=== PATIENT | male | born 1980 | race African-American/Black ===

== ENCOUNTER 2017-07-08 15:58 | Inpatient (IN) | payer SELFPAY ==
[~2017-07-08] VITALS: Ht 182.9 cm; Wt 109.1 kg
[2017-07-08] VITALS (8 sets, daily range): BP systolic 115–207; BP diastolic 66–125; PULSE 84–100; RESP 14–22; TEMP 97.5; O2SAT 97–100
[~2017-07-08 15:58] MED LIST: BENZ100 PO; BLOOD PRESSURE MED; DIABETIC MED; ZITH250T PO
[2017-07-08] MEDS ORDERED: METF500T PO (16:28)
[2017-07-08] MEDS ORDERED: LISI10TA3 PO (16:28)
[2017-07-08] MEDS ORDERED: SODIUM CHLORIDE 0.9% FLUSH 10 ML FLUSH IV FLUSH PRN ×2 (16:45→18:45)
--- NOTE | 2017-07-08 16:52 | PD ---
HPI Chief Complaint: General Weakness Time Seen by Provider: 16:44 Travel History International Travel<30 days: No Contact w/Intl Traveler<30days: No Traveled to known affect area: No History of Present Illness HPI Patient comes emergency Department complaining of feeling weak that began today. Denies any chest pain, shortness of breath, fevers, nausea, vomiting, loss or change in bowel or bladder, back pain, numbness tingling, headaches, being around anyone else is sick, or abdominal pain. Patient states had cough for little while now saw his primary care doctor about a week ago was prescribed cough medicine that helped a little bit. Reports cough is nonproductive. Patient blood work done on the showed elevated creatinine of 7.9. Patient states is not helping with the targeting acquisition officer secondary to not having any insurance. Patient has history of diabetes and hypertension reports taking his medication but denies checking his blood sugars. PFSH Past Medical History Cardiovascular Problems: Yes (HTN) Diabetes: Yes Patient Takes Glucophage: Yes Diminished Hearing: No Hypertension: Yes Influenza Vaccination: No Past Surgical History Surgical History: No Previous Surgery Social History Alcohol Use: No Tobacco Use: Yes (cigars) Substance Use: No Allergies-Medications (Allergen,Severity, Reaction): Coded Allergies: No Known Allergies (Unverified Allergy, Unknown, 07/08/17) Reported Meds & Prescriptions Reported Meds & Active Scripts Active Reported Metformin (Metformin HCl) 500 Mg Tab 500 Mg PO BIDPC Lisinopril 10 Mg Tab 10 Mg PO DAILY [Diabetic Med] [Blood Pressure Med] Review of Systems Except as stated in HPI: all other systems reviewed are Neg Physical Exam Narrative GENERAL: Well-developed, overly nourished, in no acute distress, and non-ill appearing. SKIN: Focused skin assessment warm and dry. HEAD: Atraumatic. Normocephalic. EYES: Pupils equal and round. EOMI. No scleral icterus. No injection or drainage. ENT: No nasal bleeding or discharge. Mucous membranes pink and moist. NECK: Trachea midline. Supple. No nuclear rigidity. CARDIOVASCULAR: Regular rate and rhythm. No murmur appreciated. RESPIRATORY: No accessory muscle use. No respiratory distress. Clear to auscultation. Breath sounds equal bilaterally. No coughing noted on exam. Patient speaking in full sentences without difficulty. GASTROINTESTINAL: Abdomen soft, non-tender, nondistended, and no guarding. Hepatic and splenic margins not palpable. Normal bowel sounds 4. No pulsatile mass. No CVA tenderness. MUSCULOSKELETAL: No obvious deformities. No clubbing. No cyanosis. No edema. Full range of motion. NEUROLOGICAL: Awake and alert. No obvious cranial nerve deficits. Motor grossly within normal limits. Normal speech. PSYCHIATRIC: Appropriate mood and affect; insight and judgment normal. Data Data Last Documented VS Vital Signs Date Time Temp Pulse Resp B/P (MAP) Pulse Ox O2 Delivery O2 Flow Rate FiO2 07/08/17 16:50 97 Room Air 07/08/17 16:45 86 20 07/08/17 16:00 97.5 Orders Orders Complete Blood Count With Diff (07/08/17 16:44) Comprehensive Metabolic Panel (07/08/17 16:44) Lipase (07/08/17 16:44) Urinalysis - C+S If Indicated (07/08/17 16:44) Iv Access Insert/Monitor (07/08/17 16:44) Ecg Monitoring (07/08/17 16:44) Oximetry (07/08/17 16:44) Sodium Chloride 0.9% Flush (Ns Flush) (07/08/17 16:45) Electrocardiogram (07/08/17 16:44) Chest, Single Ap (07/08/17 16:44) Influenzae A/B Antigen (07/08/17 16:44) Beta Hydroxybutyrate (Acetone) (07/08/17 16:44) Blood Gas Venous Ph (07/08/17 16:44) Consult Nephrology (07/08/17 ) (Hub Use Only)Inp Phy Cons/Ref (07/08/17 ) Bladder Scan PRN (07/08/17 18:38) Admit To Inpatient (07/08/17 ) Vital Signs (Adult) Q4H (07/08/17 18:39) Activity Oob With Assistance (07/08/17 18:39) Door Paneler / Telemetry .CONTINUOUS (07/08/17 18:39) Diet Renal (07/08/17 Dinner) Sodium Chloride 0.9% Flush (Ns Flush) (07/08/17 18:45) Sodium Chloride 0.9% Flush (Ns Flush) (07/08/17 21:00) Basic Metabolic Panel (Bmp) (07/09/17 06:00) Complete Blood Count With Diff (07/09/17 06:00) Case Management Consult (07/08/17 18:39) Naloxone Inj (Narcan Inj) (07/08/17 18:45) Inpatient Certification (07/08/17 ) Ed Discharge Order (07/08/17 18:54) Admit Order (Ed Use Only) (07/08/17 ) Vital Signs (Adult) Q4H (07/08/17 18:54) Activity Oob With Assistance (07/08/17 18:54) Notify Dr: Other (07/08/17 18:54) Labs Laboratory Tests Test 07/08/17 16:50 07/08/17 17:28 White Blood Count 8.8 TH/MM3 Red Blood Count 3.57 MIL/MM3 Hemoglobin 10.1 GM/DL Hematocrit 31.8 % Mean Corpuscular Volume 89.2 FL Mean Corpuscular Hemoglobin 28.2 PG Mean Corpuscular Hemoglobin Concent 31.7 % Red Cell Distribution Width 14.6 % Platelet Count 320 TH/MM3 Mean Platelet Volume 8.4 FL Neutrophils (%) (Auto) 58.5 % Lymphocytes (%) (Auto) 22.7 % Monocytes (%) (Auto) 14.2 % Eosinophils (%) (Auto) 3.9 % Basophils (%) (Auto) 0.7 % Neutrophils # (Auto) 5.1 TH/MM3 Lymphocytes # (Auto) 2.0 TH/MM3 Monocytes # (Auto) 1.2 TH/MM3 Eosinophils # (Auto) 0.3 TH/MM3 Basophils # (Auto) 0.1 TH/MM3 CBC Comment DIFF FINAL Differential Comment Blood Urea Nitrogen 74 MG/DL Creatinine 9.61 MG/DL Random Glucose 88 MG/DL Total Protein 6.6 GM/DL Albumin 2.6 GM/DL Calcium Level 8.8 MG/DL Alkaline Phosphatase 105 U/L Aspartate Amino Transf (AST/SGOT) 10 U/L Alanine Aminotransferase (ALT/SGPT) 17 U/L Total Bilirubin 0.2 MG/DL Sodium Level 142 MEQ/L Potassium Level 4.7 MEQ/L Chloride Level 111 MEQ/L Carbon Dioxide Level 20.2 MEQ/L Anion Gap 11 MEQ/L Estimat Glomerular Filtration Rate 7 ML/MIN Lipase 114 U/L B-Hydroxybutyrate 0.12 MMOL/L Venous Blood pH 7.[address] [facility] Medical Decision Making Medical Screen Exam Complete: Yes Emergency Medical Condition: Yes Interpretation(s) Last Impressions Chest X-Ray 07/08/17 1644 Signed Impressions: Service Date/Time: Saturday, July 08, 2017 17:00 - CONCLUSION: Hypoinflation with no acute cardiopulmonary process. Adolfo Stevenson MD Differential Diagnosis DKA, acute renal insufficiency, acute on chronic renal , dehydration, metabolic acidosis, influenza, pneumonia Narrative Course Patient was seen and examined. Initial laboratory and radiological studies were ordered. IV was established and patient was placed on cardiac monitoring. Discussed patient with Dr. Ji, who is in agreement with plan of care and disposition. Discussed patient with targeting acquisition officer recommends having patient admitted for evaluation. Discussed patient with hospitalist who is agreeable with the patient. Discussed all findings and plan care of patient and family. Patient is agreeable for admission. All questions were answered. Stable three- course. Physician Communication Physician Communication [address] Whitmore, targeting acquisition officer concrete rod buster, who recommends having patient admitted and he will consult. [address] Suarez, who is agreeable to admit patient. Diagnosis Primary Impression: Acidosis Additional Impression: Renal insufficiency Admitting Information Admitting Physician Requests: Admit Condition: Stable Delgado Cobos Jul 08, 2017 16:52
[2017-07-08 17:16] LABS: AUTOMATED NEUTROPHIL # 5.1 TH/MM3 (1.8-7.7); BASOPHIL # 0.1 TH/MM3 (0-0.2); BASOPHIL % 0.7 % (0.0-2.0); EOSINOPHIL # 0.3 TH/MM3 (0-0.4); EOSINOPHIL % 3.9 % (0.0-4.0); HEMATOCRIT 31.8 % (39.0-51.0); HEMOGLOBIN 10.1 GM/DL (13.0-17.0); LYMPH % 22.7 % (9.0-44.0); MEAN CELL VOLUME 89.2 FL (80.0-100.0); MEAN CORPUSCULAR HEMOGLOBIN 28.2 PG (27.0-34.0); MEAN CORPUSCULAR HGB CONC 31.7 % (32.0-36.0); MEAN PLATELET VOLUME 8.4 FL (7.0-11.0); MONO % 14.2 % (0.0-8.0); MONOCYTE # 1.2 TH/MM3 (0-0.9); NEUT % 58.5 % (16.0-70.0); PLATELET COUNT 320 TH/MM3 (150-450); RED BLOOD COUNT 3.57 MIL/MM3 (4.50-5.90); RED CELL DISTRIBUTION WIDTH 14.6 % (11.6-17.2); WHITE BLOOD COUNT 8.8 TH/MM3 (4.0-11.0)
[2017-07-08 17:27] LABS: ALBUMIN 2.6 GM/DL (3.4-5.0); AST (GOT) 10 U/L (15-37); BICARBONATE 20.2 MEQ/L (21.0-32.0); BLOOD UREA NITROGEN 74 MG/DL (7-18); CALCIUM 8.8 MG/DL (8.5-10.1); CHLORIDE 111 MEQ/L (98-107); CREATININE 9.61 MG/DL (0.60-1.30); GLOMERULAR FILTRATION RATE 7 ML/MIN (>89); GLUCOSE,RANDOM 88 MG/DL (74-106); LIPASE 114 U/L (73-393); SODIUM (NA) 142 MEQ/L (136-145)
--- NOTE | 2017-07-08 17:27 | RADRPT ---
EXAM DATE/TIME: 07/08/2017 17:00 [facility] COMPARISON: No previous studies available for comparison. INDICATIONS : Cough. MEDICAL HISTORY : None. SURGICAL HISTORY : None. ENCOUNTER: Initial ACUITY: 2 months PAIN SCORE: 0/10 LOCATION: Bilateral chest FINDINGS: A single view of the chest demonstrates the lungs to be symmetrically hypoinflated with no acute infi ltrate. Accounting for low lung lines the heart size is upper limits of normal. Osseous structures ar e intact. CONCLUSION: Hypoinflation with no acute cardiopulmonary process. Adolfo Stevenson MD on July 08, 2017 at 17:24 Board Certified Radiologist. This report was verified electronically.
[2017-07-08 17:28] LABS: ALT (GPT) 17 U/L (12-78)
[2017-07-08 17:30] LABS: ALKALINE PHOSPHATASE 105 U/L (45-117); TOTAL BILIRUBIN ADULT 0.2 MG/DL (0.2-1.0); TOTAL PROTEIN 6.6 GM/DL (6.4-8.2)
--- NOTE | 2017-07-08 17:53 | PD ---
Data Data Last Documented VS Vital Signs Date Time Temp Pulse Resp B/P (MAP) Pulse Ox O2 Delivery O2 Flow Rate FiO2 07/08/17 16:50 97 Room Air 07/08/17 16:00 97.5 90 14 Orders Orders Complete Blood Count With Diff (07/08/17 16:44) Comprehensive Metabolic Panel (07/08/17 16:44) Lipase (07/08/17 16:44) Urinalysis - C+S If Indicated (07/08/17 16:44) Iv Access Insert/Monitor (07/08/17 16:44) Ecg Monitoring (07/08/17 16:44) Oximetry (07/08/17 16:44) Sodium Chloride 0.9% Flush (Ns Flush) (07/08/17 16:45) Electrocardiogram (07/08/17 16:44) Chest, Single Ap (07/08/17 16:44) Influenzae A/B Antigen (07/08/17 16:44) Beta Hydroxybutyrate (Acetone) (07/08/17 16:44) Blood Gas Venous Ph (07/08/17 16:44) Consult Nephrology (07/08/17 ) Labs Laboratory Tests Test 07/08/17 16:50 07/08/17 17:28 White Blood Count 8.8 TH/MM3 Red Blood Count 3.57 MIL/MM3 Hemoglobin 10.1 GM/DL Hematocrit 31.8 % Mean Corpuscular Volume 89.2 FL Mean Corpuscular Hemoglobin 28.2 PG Mean Corpuscular Hemoglobin Concent 31.7 % Red Cell Distribution Width 14.6 % Platelet Count 320 TH/MM3 Mean Platelet Volume 8.4 FL Neutrophils (%) (Auto) 58.5 % Lymphocytes (%) (Auto) 22.7 % Monocytes (%) (Auto) 14.2 % Eosinophils (%) (Auto) 3.9 % Basophils (%) (Auto) 0.7 % Neutrophils # (Auto) 5.1 TH/MM3 Lymphocytes # (Auto) 2.0 TH/MM3 Monocytes # (Auto) 1.2 TH/MM3 Eosinophils # (Auto) 0.3 TH/MM3 Basophils # (Auto) 0.1 TH/MM3 CBC Comment DIFF FINAL Differential Comment Blood Urea Nitrogen 74 MG/DL Creatinine 9.61 MG/DL Random Glucose 88 MG/DL Total Protein 6.6 GM/DL Albumin 2.6 GM/DL Calcium Level 8.8 MG/DL Alkaline Phosphatase 105 U/L Aspartate Amino Transf (AST/SGOT) 10 U/L Alanine Aminotransferase (ALT/SGPT) 17 U/L Total Bilirubin 0.2 MG/DL Sodium Level 142 MEQ/L Potassium Level 4.7 MEQ/L Chloride Level 111 MEQ/L Carbon Dioxide Level 20.2 MEQ/L Anion Gap 11 MEQ/L Estimat Glomerular Filtration Rate 7 ML/MIN Lipase 114 U/L B-Hydroxybutyrate 0.12 MMOL/L Venous Blood pH 7.27 MDM Supervised Visit with MAGNO: Yes Narrative Course I, Dr. Charles, have reviewed the advance practice practitioner's documentation and am in agreement, met with the patient face to face, made the diagnosis, and the medical decision making was done by me. *My assessment and Findings: 36-year-old man, history of hypertension diabetes, now with acutely recognize renal insufficiency. Some acidosis. Worsening weakness today. Discussed with nephrology. We'll plan on admission for evaluation by nephrology. Marino Charles MD Jul 08, 2017 17:53
[2017-07-08] MEDS ORDERED: NALOXONE HCL 0.4 MG/ML AMP IV PUSH PRN (18:45)
[2017-07-08] MEDS ORDERED: hydrALAZINE HCL 20 MG/ML VIAL IV PUSH PRN (21:00)
[2017-07-08] MEDS: SODIUM CHLORIDE 0.9% FLUSH 10 ML FLUSH IV FLUSH SCH (21:00)
--- NOTE | 2017-07-08 21:09 | HHI.HP ---
[facility] Service [facility] Primary Care Physician Curt Choudhary M.D. Admission Diagnosis acidosis, renal insufficiency Diagnoses: Travel History International Travel<30 Days: No Contact w/Intl Traveler <30 Da: No Traveled to Known Affected Are: No History of Present Illness 36-year-old male with past medical history significant for diabetes mellitus and hypertension presents to the emergency department for evaluation of a 1 day history of fatigue. The patient reports that he has been feeling more tired and "just not well" today. The patient had labs drawn by his PCP on 06/29/17 which showed a creatinine of 7. The patient was contacted by his PCP to go to nephrology. The patient was unable to be seen by a electrician helper powerhouse secondary to insurance issues. Patient's creatinine today 9.61. He denies any fever/chills , chest pain, shortness of breath, nausea/vomiting/diarrhea. Denies headache. Vital signs: Temperature 97.5, pulse 90, respirations 14, BP 207/125, pulse ox 100% on room air. Review of Systems Denies fever or chills Denies blurry vision, otorrhea, rhinorrhea Denies sore throat and cough No chest pain, palpitations No shortness of breath or wheezing No abdominal pain Denies constipation/diarrhea/nausea/vomiting Denies muscle pain Denies focal weakness No rashes Past Family Social History Past Medical History Diabetes mellitus Hypertension Past Surgical History None Reported Medications Reported Meds & Active Scripts Active Reported Metformin (Metformin HCl) 500 Mg Tab 500 Mg PO BIDPC Lisinopril 10 Mg Tab 10 Mg PO DAILY [Diabetic Med] [Blood Pressure Med] Allergies: Coded Allergies: No Known Allergies (Unverified Allergy, Unknown, 07/08/17) Family History Both parents with CAD/DM Social History Smokes one cigar daily. Denies alcohol, illicit drugs. Physical Exam Vital Signs Vital Signs Date Time Temp Pulse Resp B/P (MAP) Pulse Ox O2 Delivery O2 Flow Rate FiO2 07/08/17 20:28 84 20 198/91 (126) 98 Room Air 07/08/17 19:14 86 19 203/111 (141) Room Air 07/08/17 16:50 97 Room Air 07/08/17 16:45 86 20 115/66 (82) 100 Room Air 07/08/17 16:00 97.5 90 14 207/125 (152) 100 Physical Exam GENERAL: male sitting up in bed SKIN: No rashes, ecchymoses or lesions. Cool and dry. HEAD: Atraumatic. Normocephalic. No temporal or scalp tenderness. EYES: Pupils equal round and reactive. Extraocular motions intact. No scleral icterus. No injection or drainage. ENT: Nose without bleeding, purulent drainage or septal hematoma. Throat without erythema, tonsillar hypertrophy or exudate. Uvula midline. Airway patent. NECK: Trachea midline. No JVD or lymphadenopathy. Supple, nontender, no meningeal signs. CARDIOVASCULAR: Regular rate and rhythm without murmurs, gallops, or rubs. RESPIRATORY: Clear to auscultation. Breath sounds equal bilaterally. No wheezes , rales, or rhonchi. GASTROINTESTINAL: Abdomen soft, non-tender, nondistended. No hepato-splenomegaly , or palpable masses. No guarding. : No CVA tenderness MUSCULOSKELETAL: Extremities without clubbing, cyanosis, or edema. No joint tenderness, effusion, or edema noted. No calf tenderness. NEUROLOGICAL: Awake and alert. Cranial nerves II through XII intact. Motor and sensory grossly within normal limits. Normal speech. Laboratory Laboratory Tests Test 07/08/17 16:50 07/08/17 17:28 White Blood Count 8.8 Red Blood Count 3.57 Hemoglobin 10.1 Hematocrit 31.8 Mean Corpuscular Volume 89.2 Mean Corpuscular Hemoglobin 28.2 Mean Corpuscular Hemoglobin Concent 31.7 Red Cell Distribution Width 14.6 Platelet Count 320 Mean Platelet Volume 8.4 Neutrophils (%) (Auto) 58.5 Lymphocytes (%) (Auto) 22.7 Monocytes (%) (Auto) 14.2 Eosinophils (%) (Auto) 3.9 Basophils (%) (Auto) 0.7 Neutrophils # (Auto) 5.1 Lymphocytes # (Auto) 2.0 Monocytes # (Auto) 1.2 Eosinophils # (Auto) 0.3 Basophils # (Auto) 0.1 CBC Comment DIFF FINAL Differential Comment Blood Urea Nitrogen 74 Creatinine 9.61 Random Glucose 88 Total Protein 6.6 Albumin 2.6 Calcium Level 8.8 Alkaline Phosphatase 105 Aspartate Amino Transf (AST/SGOT) 10 Alanine Aminotransferase (ALT/SGPT) 17 Total Bilirubin 0.2 Sodium Level 142 Potassium Level 4.7 Chloride Level 111 Carbon Dioxide Level 20.2 Anion Gap 11 Estimat Glomerular Filtration Rate 7 Lipase 114 B-Hydroxybutyrate 0.12 Venous Blood pH 7.27 Date/Time Source Procedure Growth Status 07/08/17 16:50 Nasal Aspirate Influenza Types A,B Antigen (ANAHI) - Final NEGATIVE FOR FLU A AND B ANTIGEN.... Complete Result Diagram: 07/08/17164907/08/171649 Caprini VTE Risk Assessment Caprini VTE Risk Assessment: No/Low Risk (score <= 1) Caprini Risk Assessment Model Point Value = 1 Point Value = 2 Point Value = 3 Point Value = 5 Age 41-60 Minor surgery BMI > 25 kg/m2 Swollen legs Varicose veins or History of unexplained or recurrent spontaneous Oral contraceptives or hormone replacement Sepsis (< 1 month) Serious lung disease, including pneumonia (< 1 month) Abnormal pulmonary function Acute myocardial infarction Congestive heart failure (< 1 month) History of inflammatory bowel disease Medical patient at bed rest Age 61-74 Arthroscopic surgery Major open surgery (> 45 min) Laparoscopic surgery (> 45 min) Malignancy Confined to bed (> 72 hours) Immobilizing plaster cast Central venous access Age >= 75 History of VTE Family history of VTE Factor V Leiden Prothrombin [id number] Lupus anticoagulant Anticardiolipin antibodies Elevated serum homocysteine Heparin-induced thrombocytopenia Other congenital or acquired thrombophilia Stroke (< 1 month) Elective arthroplasty Hip, pelvis, or leg fracture Acute spinal cord injury (< 1 month) Prophylaxis Regimen Total Risk Factor Score Risk Level Prophylaxis Regimen 0-1 Low Early ambulation 2 Moderate Order ONE of the following: *Sequential Compression Device (SCD) *Heparin 5000 units SQ BID 3-4 Higher Order ONE of the following medications: *Heparin 5000 units SQ TID *Enoxaparin/Lovenox 40 mg SQ daily (WT < 150 kg, CrCl > 30 mL/min) *Enoxaparin/Lovenox 30 mg SQ daily (WT < 150 kg, CrCl > 10-29 mL/min) *Enoxaparin/Lovenox 30 mg SQ BID (WT < 150 kg, CrCl > 30 mL/min) AND/OR *Sequential Compression Device (SCD) 5 or more Highest Order ONE of the following medications: *Heparin 5000 units SQ TID (Preferred with Epidurals) *Enoxaparin/Lovenox 40 mg SQ daily (WT < 150 kg, CrCl > 30 mL/min) *Enoxaparin/Lovenox 30 mg SQ daily (WT < 150 kg, CrCl > 10-29 mL/min) *Enoxaparin/Lovenox 30 mg SQ BID (WT < 150 kg, CrCl > 30 mL/min) AND *Sequential Compression Device (SCD) Assessment and Plan Assessment and Plan Assessment/plan: 1. Acute on chronic renal insufficiency Patient's creatinine reportedly 7 on 06/29/17, 9.61 today K 4.7 Renal ultrasound pending Nephrology consulted, appreciate recommendations IV fluid hydration 2. Hypertensive crisis Continue home amlodipine Hydralazine, clonidine when necessary Monitor blood pressure If blood pressure does not respond to above will start Cardene drip 3. Type 2 diabetes mellitus Holding home oral antihyperglycemic SSI Monitor blood glucose 4. Hyperchloremia LR for hydration FEN Renal diet Electrolytes: monitor and replete prn LR at 125 cc/hr Physician Certification 2 Midnight Certification Type: Admission for Inpatient Services Order for Inpatient Services The services are ordered in accordance with Medicare regulations or non- Medicare payer requirements, as applicable. In the case of services not specified as inpatient-only, they are appropriately provided as inpatient services in accordance with the 2-midnight benchmark. Estimated LOS (days): 2 2 days is the estimated time the patient will need to remain in the hospital, assuming treatment plan goals are met and no additional complications. Post-Hospital Plan: Not yet determined Joanna Valero MD Jul 08, 2017 21:09
[2017-07-08] MEDS ORDERED: DEXTROSE 50% IN WATER 50 ML VIAL(D50) IV PUSH PRN (21:15)
[2017-07-08] MEDS ORDERED: GLUCAGON 1 MG/ML VIAL OTHER PRN (21:15)
[2017-07-08 21:30] LABS: AMORPHOUS SEDIMENT, URINE RARE; BILIRUBIN, URINE NEG (NEG); BLOOD, URINE SMALL (NEG); GLUCOSE,URINE 70 mg/dL (NEG); KETONE, URINE NEG (NEG); MUCUS URINE FEW /lpf (OCC); NITRITE,URINE NEG (NEG); SQUAMOUS EPITHELIAL CELL URINE <1 /hpf (0-5); URINE COLOR LIGHT-YELLOW (YELLW/STRAW); URINE LEUKOCYTE ESTERASE NEG (NEG)
[2017-07-08] MEDS: cloNIDine HCL 0.1 MG TAB PO PRN (21:55)
[2017-07-08] MEDS: LACTATED RINGER'S 1000 ML INJ 1,000 ML IV SCH (22:55)
[2017-07-08] MEDS ORDERED: hydrALAZINE HCL 20 MG/ML VIAL IV ONE (23:30)
[2017-07-09] VITALS (13 sets, daily range): BP systolic 160–206; BP diastolic 77–113; PULSE 80–129; RESP 14–24; TEMP 96.1–97.2; O2SAT 97–100
--- NOTE | 2017-07-09 00:34 | EKG ---
Date Performed: 07/08/2017 Time Performed: 16:58:37 PTAGE: 36 years EKG: Sinus rhythm LEFT VENTRICULAR HYPERTROPHY AND ST-T CHANGE ABNORMAL ECG PREVIOUS TRACING : 06/16/2015 19.23 Compared to prior tracing, rate has decreased DOCTOR: Bulmaro Pizarro Interpretating Date/Time 07/09/2017 00:33:25
[2017-07-09] MEDS: cloNIDine HCL 0.1 MG TAB PO PRN (04:04)
[2017-07-09 05:36] LABS: BASOPHIL % 0.5 % (0.0-2.0); EOSINOPHIL # 0.3 TH/MM3 (0-0.4); EOSINOPHIL % 3.8 % (0.0-4.0); HEMATOCRIT 29.9 % (39.0-51.0); HEMOGLOBIN 9.7 GM/DL (13.0-17.0); LYMPH % 20.2 % (9.0-44.0); LYMPHOCYTE # 1.6 TH/MM3 (1.0-4.8); MEAN CELL VOLUME 88.5 FL (80.0-100.0); MEAN CORPUSCULAR HEMOGLOBIN 28.8 PG (27.0-34.0); MEAN CORPUSCULAR HGB CONC 32.6 % (32.0-36.0); MEAN PLATELET VOLUME 8.6 FL (7.0-11.0); MONO % 11.7 % (0.0-8.0); MONOCYTE # 0.9 TH/MM3 (0-0.9); NEUT % 63.8 % (16.0-70.0); PLATELET COUNT 291 TH/MM3 (150-450); RED BLOOD COUNT 3.38 MIL/MM3 (4.50-5.90); RED CELL DISTRIBUTION WIDTH 14.3 % (11.6-17.2); WHITE BLOOD COUNT 7.8 TH/MM3 (4.0-11.0)
[2017-07-09 05:46] LABS: CALCIUM 8.7 MG/DL (8.5-10.1); CREATININE 9.73 MG/DL (0.60-1.30)
[2017-07-09] MEDS: LACTATED RINGER'S 1000 ML INJ 1,000 ML IV SCH ×2 (06:23→13:15)
[2017-07-09] MEDS: INSULIN ASPART SUPPLEMENTAL SCALE SQ SCH ×4 (08:00→20:59)
[2017-07-09] MEDS ORDERED: LISINOPRIL 10 MG TAB PO SCH (09:00)
--- NOTE | 2017-07-09 09:05 | RADRPT ---
EXAM DATE/TIME: 07/09/2017 07:31 [facility] COMPARISON: No previous studies available for comparison. INDICATIONS : Increased BUN/creatinine. MEDICAL HISTORY : Hypertension. Diabetes. Tobacco use. SURGICAL HISTORY : None. ENCOUNTER: Initial ACUITY: 2 days PAIN SCORE: 0/10 LOCATION: Bilateral flank MEASUREMENTS: RIGHT KIDNEY: 10.7 x 5.6 x 5.8 cm LEFT KIDNEY: 10.1 x 4.0 x 4.0 cm FINDINGS: RIGHT KIDNEY: Mild diffusely increased cortical echogenicity. No stone or hydronephrosis. Small anechoic cyst in th e superior pole measuring 1.2 x 1.0 x 1.0 cm. LEFT KIDNEY: Mild diffuse increased cortical echogenicity. No stone or hydronephrosis. No mass. BLADDER: Within normal limits given the degree of distension. CONCLUSION: 1. Mild diffusely increased cortical echogenicity consistent with medical renal disease. 2. No obstructive uropathy. 3. Trace right perinephric fluid. This is a nonspecific finding. 4. Small simple cyst in the superior pole of the right kidney. Ramy Guillaume MD on July 09, 2017 at 9:00 Board Certified Radiologist. This report was verified electronically.
[2017-07-09] MEDS: SODIUM CHLORIDE 0.9% FLUSH 10 ML FLUSH IV FLUSH SCH ×2 (09:21→21:00)
--- NOTE | 2017-07-09 15:23 | HHI.PR ---
Subjective Remarks denies cp/sob afebrile BP very elevated in the 170's Objective Vitals Vital Signs Date Time Temp Pulse Resp B/P (MAP) Pulse Ox O2 Delivery O2 Flow Rate FiO2 07/09/17 13:00 97.2 80 19 181/105 (130) 100 07/09/17 11:27 85 16 165/94 (117) 98 07/09/17 08:44 88 14 177/100 (125) 98 07/09/17 06:00 82 16 173/77 (109) 07/09/17 05:00 86 14 180/78 (112) 98 Room Air 07/09/17 04:00 86 19 206/113 (144) 98 Room Air 07/09/17 02:00 98 20 168/97 (120) 99 07/09/17 01:15 100 20 175/91 (119) 99 07/09/17 00:04 102 22 175/84 (114) 98 07/08/17 22:30 94 22 184/91 (122) 99 07/08/17 21:30 92 22 177/91 (119) 07/08/17 20:28 84 20 198/91 (126) 98 Room Air 07/08/17 19:14 86 19 203/111 (141) Room Air 07/08/17 16:50 97 Room Air 07/08/17 16:45 86 20 115/66 (82) 100 Room Air 07/08/17 16:00 97.5 90 14 207/125 (152) 100 I/O 07/08/17 07/08/17 07/08/17 07/09/17 07/09/17 07/09/17 06:59 14:59 22:59 06:59 14:59 22:59 Intake Total 1000 ml Output Total 1300 ml Balance 1000 ml -1300 ml Intake IV Total 1000 ml Output Urine Total 1300 ml # Voids 2 Result Diagram: 07/09/17 0411 07/09/17 0411 Imaging Last Impressions Renal Ultrasound 07/09/17 0000 Signed Impressions: Service Date/Time: June 07:31 - CONCLUSION: 1. Mild diffusely increased cortical echogenicity consistent with medical renal disease. 2. No obstructive uropathy. 3. Trace right perinephric fluid. This is a nonspecific finding. 4. Small simple cyst in the superior pole of the right kidney. Ramy Guillaume MD Chest X-Ray 07/08/17 1644 Signed Impressions: Service Date/Time: Saturday, July 08, 2017 17:00 - CONCLUSION: Hypoinflation with no acute cardiopulmonary process. Adolfo Stevenson MD Objective Remarks AAOX3 Facial edema with swollen eyelids Clear lungs BL S1S2 RRR, no MRG Abdomen soft, nt, nd no edema in lower extremities Medications and IVs Current Medications Medications (Trade) Dose Ordered Sig/Christine Route Start Time Stop Time Status Last Admin (NS Flush) 2 ml UNSCH PRN IV FLUSH 07/08/17 18:45 (NS Flush) 2 ml BID IV FLUSH 07/08/17 21:00 07/09/17 09:21 (Narcan Inj) 0.4 mg UNSCH PRN IV PUSH 07/08/17 18:45 (Apresoline Inj) 10 mg Q4H PRN IV PUSH 07/08/17 21:00 07/08/17 21:55 (Catapres) 0.1 mg Q6H PRN PO 07/08/17 21:00 07/09/17 04:04 (D50w (Vial) Inj) 50 ml UNSCH PRN IV PUSH 07/08/17 21:15 (Glucagon Inj) 1 mg UNSCH PRN OTHER 07/08/17 21:15 (NovoLOG SUPPLEMENTAL SCALE) 1 ACHS SLIDING SCALE SQ 07/09/17 08:00 Sodium Bicarbonate 100 meq/Sodium Chloride 1,100 ml @ 42 mls/hr Q24H IV 07/09/17 15:15 UNV (Cardura) 2 mg DAILY PO 07/10/17 09:00 UNV (Cardura) 2 mg ONCE ONCE PO 07/09/17 15:15 07/09/17 15:16 UNV A/P Problem List: (1) Uncontrolled hypertension ICD Code: I10 - Essential (primary) hypertension (2) FERNANDEZ (acute kidney injury) ICD Code: N17.9 - Acute kidney failure, unspecified (3) CKD (chronic kidney disease) ICD Code: N18.9 - Chronic kidney disease, unspecified (4) Metabolic acidosis ICD Code: E87.2 - Acidosis Assessment and Plan 1. Acute on chronic renal insufficiency Patient's creatinine reportedly 7 on 06/29/17, 9.61 on admission K 4.7 Nephrology consulted - Recommendations pending. 07/09 Change IV fluids do NS + sodium bicarbonate due to acidosis. Renal ultrasound consistent with medical renal disease. No obstructive uropathy reported. Small simple cyst in the superior pole of the right kidney. 2. Hypertensive crisis Continue home amlodipine Hydralazine, clonidine when necessary Monitor blood pressure 07/09 BP still elevated. Will DC Lisinopril and start patient on oral hydralazine and Cardura. Continue to monitor vital signs. 3. Type 2 diabetes mellitus Holding home oral antihyperglycemic SSI Monitor blood glucose 07/09 Blood sugars stable. Check hemoglobin A1c. 4. Hyperchloremia The CXR and start the patient on an as place sodium bicarbonate. Monitor BMP. FEN Renal diet Electrolytes: monitor and replete prn Discharge Planning Nephrology consult pending. BP elevated. Ayush Ryan MD Jul 09, 2017 15:23
[2017-07-09] MEDS ORDERED: DOXAZOSIN MESYLATE 2 MG TAB PO ONE (15:30)
[2017-07-09] MEDS: hydrALAZINE HCL 10 MG TAB PO SCH ×2 (15:58→22:31)
[2017-07-09] MEDS: SODIUM BICARBONATE 8.4% INJ 75 MEQ in SODIUM CHLOR 0.45% 1000 ML INJ 1,000 ML IV SCH (15:58)
[2017-07-09] MEDS ORDERED: SODIUM BICARBONATE 8.4% INJ 100 MEQ in SODIUM CHLOR 0.9% 1000 ML INJ 1,000 ML IV SCH (16:00)
[2017-07-09] MEDS ORDERED: SODIUM CHLORIDE 0.9% FLUSH 10 ML FLUSH IV FLUSH PRN (16:30)
[2017-07-09] MEDS ORDERED: diphenhydrAMINE HCL 25 MG CAP PO PRN (16:30)
[2017-07-09] MEDS ORDERED: SODIUM CHLOR 0.9% 1000 ML INJ 1,000 ML IV PRN (16:30)
[2017-07-09] MEDS ORDERED: ACETAMINOPHEN 325 MG TAB PO PRN (16:30)
[2017-07-09] MEDS ORDERED: GENTAMICIN SULFATE 20 MG/2 ML VIAL OTHER PRN (16:30)
[2017-07-09] MEDS ORDERED: GELATIN 12 MM/7 MM FOAM TOP PRN (16:30)
[2017-07-09] MEDS ORDERED: SODIUM CHLOR 0.9% 1000 ML INJ 1,000 ML OTHER PRN ×2 (16:30)
[2017-07-09] MEDS ORDERED: MANNITOL 12.5 GM/50 ML VIAL IV PRN (16:30)
[2017-07-09] MEDS ORDERED: cloNIDine HCL 0.1 MG TAB PO PRN (16:30)
[2017-07-09] MEDS ORDERED: NITROGLYCERIN 0.4 MG SL 25 TABS/BTL SL PRN (16:30)
[2017-07-09] MEDS ORDERED: HEPARIN SODIUM - IV 10,000 UNITS/10 ML VIAL IV FLUSH PRN (16:30)
[2017-07-09] MEDS ORDERED: ONDANSETRON HCL 4 MG/2 ML VIAL IV PUSH PRN (16:30)
[2017-07-09] MEDS ORDERED: ALBUMIN 25% INJ 100 ML IV PRN (16:30)
--- NOTE | 2017-07-09 18:08 | PD.CONS ---
[facility] Service Nephrology Reason for Consult ARF Primary Care Physician Curt Choudhary M.D. History of Present Illness The patient is a 36 yo AA male who presented to this facility 07/08 with complaints of fatigue & malaise. He saw his PCP last week for routine care and was advised that his renal functions were severely impaired with SCr at 7.95 and eGFR of 9. He unfortunately has been noncompliant with his medical care on the past and last labs prior to this were in 2014 showing a SCr of 2.05 and eGFR 46. He is a longstanding uncontrolled hypertensive and diabetic. He has been prescribed Lisinopril & Metformin in the past, but does not always take it. He currently is unemployed and has no health insurance which he states is why he has not been following up regularly with his primary. Admitting SCr at 9.61 with eGFR of 7. Worsened at time of consult to 9.73. Denies any NSAID use at home. No recent illness. No antibiotics. No urinary issues. Denies NVD. Besides progressive fatigue that his mother and sister who are present endorse, he denies any other symptoms. (Chastity Morgan) Review of Systems Constitutional: COMPLAINS OF: Fatigue, Change in appetite (Chastity Morgan ) Past Family Social History Allergies: Coded Allergies: No Known Allergies (Unverified Allergy, Unknown, 07/08/17) Past Medical History Noncompliance HTN DM Past Surgical History Denies Reported Medications Metformin (Metformin HCl) 500 Mg Tab 500 Mg PO BID PC Lisinopril 10 Mg Tab 10 Mg PO DAILY Active Ordered Medications Current Medications Medications (Trade) Dose Ordered Sig/Christine Route Start Time Stop Time Status Last Admin (NS Flush) 2 ml UNSCH PRN IV FLUSH 07/08/17 18:45 (NS Flush) 2 ml BID IV FLUSH 07/08/17 21:00 07/09/17 09:21 (Narcan Inj) 0.4 mg UNSCH PRN IV PUSH 07/08/17 18:45 (Apresoline Inj) 10 mg Q4H PRN IV PUSH 07/08/17 21:00 07/08/17 21:55 (Catapres) 0.1 mg Q6H PRN PO 07/08/17 21:00 07/09/17 04:04 (D50w (Vial) Inj) 50 ml UNSCH PRN IV PUSH 07/08/17 21:15 (Glucagon Inj) 1 mg UNSCH PRN OTHER 07/08/17 21:15 (NovoLOG SUPPLEMENTAL SCALE) 1 ACHS SLIDING SCALE SQ 07/09/17 08:00 07/09/17 17:05 (Cardura) 2 mg DAILY PO 07/10/17 09:00 (Apresoline) 10 mg Q8HR PO 07/09/17 15:30 07/09/17 15:58 Sodium Bicarbonate 75 meq/Sodium Chloride 1,075 ml @ 42 mls/hr Q24H IV 07/09/17 16:00 07/09/17 15:58 Sodium Chloride 1,000 ml @ 0 mls/hr Q0M PRN OTHER 07/09/17 16:30 (Heparin Inj) 8,000 units UNSCH PRN IV FLUSH 07/09/17 16:30 Sodium Chloride 1,000 ml @ 200 mls/hr Q5H PRN IV 07/09/17 16:30 Sodium Chloride 1,000 ml @ 0 mls/hr Q0M PRN OTHER 07/09/17 16:30 (Mannitol Inj) 12.5 gm UNSCH PRN IV 07/09/17 16:30 Albumin Human 100 ml @ 60 mls/hr UNSCH PRN IV 07/09/17 16:30 (NS Flush) 5 ml UNSCH PRN IV FLUSH 07/09/17 16:30 (Heparin Inj) UNSCH PRN .XX 07/09/17 16:30 (Gentamicin (Dialysis) Inj) 20 mg UNSCH PRN OTHER 07/09/17 16:30 (Zofran Inj) 4 mg UNSCH PRN IV PUSH 07/09/17 16:30 (Tylenol) 650 mg UNSCH PRN PO 07/09/17 16:30 (Benadryl) 25 mg UNSCH PRN PO 07/09/17 16:30 (Nitrostat Sl) 0.4 mg UNSCH PRN SL 07/09/17 16:30 (Catapres) 0.1 mg UNSCH PRN PO 07/09/17 16:30 (Gelfoam 12 Mm/7 Mm Top) 1 foam UNSCH PRN TOP 07/09/17 16:30 Family History Father with kidney disease related to hypertension Social History Smokes cigars Denies EtOH Denies illicits (Chastity Morgan) Physical Exam Vital Signs Vital Signs Date Time Temp Pulse Resp B/P (MAP) Pulse Ox O2 Delivery O2 Flow Rate FiO2 07/09/17 16:00 97.1 91 17 179/93 (121) 100 07/09/17 13:00 97.2 80 19 181/105 (130) 100 07/09/17 11:27 85 16 165/94 (117) 98 07/09/17 08:44 88 14 177/100 (125) 98 07/09/17 06:00 82 16 173/77 (109) 07/09/17 05:00 86 14 180/78 (112) 98 Room Air 07/09/17 04:00 86 19 206/113 (144) 98 Room Air 07/09/17 02:00 98 20 168/97 (120) 99 07/09/17 01:15 100 20 175/91 (119) 99 07/09/17 00:04 102 22 175/84 (114) 98 07/08/17 22:30 94 22 184/91 (122) 99 07/08/17 21:30 92 22 177/91 (119) 07/08/17 20:28 84 20 198/91 (126) 98 Room Air 07/08/17 19:14 86 19 203/111 (141) Room Air Physical Exam GENERAL: Awake, laying in bed, withdrawn SKIN: Warm and dry. HEAD: Atraumatic. Normocephalic. EYES: Pupils equal and round. No scleral icterus. No injection or drainage. ENT: No nasal bleeding or discharge. Mucous membranes pink and moist. NECK: Trachea midline. No JVD. CARDIOVASCULAR: Regular rate and rhythm. RESPIRATORY: No accessory muscle use. Clear to auscultation. Breath sounds equal bilaterally. GASTROINTESTINAL: Abdomen soft, non-tender, nondistended. Hepatic and splenic margins not palpable. MUSCULOSKELETAL: Extremities without clubbing, cyanosis, or edema. No obvious deformities. NEUROLOGICAL: Awake and alert. Normal speech. PSYCHIATRIC: Appropriate mood and affect; insight and judgment normal. Laboratory Laboratory Tests Test 07/08/17 20:00 07/09/17 04:11 Urine Color LIGHT-YELLOW Urine Turbidity CLEAR Urine pH 6.0 Urine Specific Tyner 1.010 Urine Protein 300 Urine Glucose (UA) 70 Urine Ketones NEG Urine Occult Blood SMALL Urine Nitrite NEG Urine Bilirubin NEG Urine Urobilinogen LESS THAN 2.0 Urine Leukocyte Esterase NEG Urine RBC 2 Urine WBC 5 Urine Squamous Epithelial Cells <1 Urine Amorphous Sediment RARE Urine Mucus FEW Microscopic Urinalysis Comment CULT NOT INDICATED White Blood Count 7.8 Red Blood Count 3.38 Hemoglobin 9.7 Hematocrit 29.9 Mean Corpuscular Volume 88.5 Mean Corpuscular Hemoglobin 28.8 Mean Corpuscular Hemoglobin Concent 32.6 Red Cell Distribution Width 14.3 Platelet Count 291 Mean Platelet Volume 8.6 Neutrophils (%) (Auto) 63.8 Lymphocytes (%) (Auto) 20.2 Monocytes (%) (Auto) 11.7 Eosinophils (%) (Auto) 3.8 Basophils (%) (Auto) 0.5 Neutrophils # (Auto) 5.0 Lymphocytes # (Auto) 1.6 Monocytes # (Auto) 0.9 Eosinophils # (Auto) 0.3 Basophils # (Auto) 0.0 CBC Comment DIFF FINAL Differential Comment Blood Urea Nitrogen 75 Creatinine 9.73 Random Glucose 110 Calcium Level 8.7 Sodium Level 144 Potassium Level 4.5 Chloride Level 114 Carbon Dioxide Level 19.0 Anion Gap 11 Estimat Glomerular Filtration Rate 7 Date/Time Source Procedure Growth Status 07/08/17 16:50 Nasal Aspirate Influenza Types A,B Antigen (ANAHI) - Final NEGATIVE FOR FLU A AND B ANTIGEN.... Complete (Chastity Morgan) Result Diagram: 07/09/17 0411 07/09/17 0411 Imaging Last Impressions Renal Ultrasound 07/09/17 0000 Signed Impressions: Service Date/Time: June 07:31 - CONCLUSION: 1. Mild diffusely increased cortical echogenicity consistent with medical renal disease. 2. No obstructive uropathy. 3. Trace right perinephric fluid. This is a nonspecific finding. 4. Small simple cyst in the superior pole of the right kidney. Ramy Guillaume MD Chest X-Ray 07/08/17 1644 Signed Impressions: Service Date/Time: Saturday, July 08, 2017 17:00 - CONCLUSION: Hypoinflation with no acute cardiopulmonary process. Adolfo Stevenson MD (Chastity Morgan) Assessment and Plan Problem List: (1) Renal failure ICD Codes: N19 - Unspecified kidney failure Plan: Unfortunately, it appears the patient likely has chronic, progressive renal failure related to longstanding uncontrolled hypertension and diabetes with associated heavy proteinuria. It is suspected that he has reached ESRD at this point. We will plan on initiating dialysis tomorrow after PermCath placed (consulted IR & notified intelligence manager). We will do work up in interim to see if there is any reversible cause for renal failure, but nothing identified at the present. To continue on IVF overnight with bicarb added given acidosis. This will correct with HD tomorrow. The patient and his family have been advised of the potential complications that can occur with catheter placement as well as dialysis. He is in verbal agreement to proceed. NPO after midnight 1st HD 07/10 with 2nd session likely 07/11 with MWF schedule thereafter if deemed chronic. Case management will be asked to see the patient regarding outpatient payor source. If he does not qualify for Medicaid, then he will likely be eligible for Medicare if deemed ESRD. Unfortunately, this process can be prolonged and sometimes take upwards of 90 days at the start of dialysis which the patient and his family have been counseled. Avoid nephrotoxic medications including NSAIDs and iodinated contrast dyes. Avoid gadolinium. (2) Uncontrolled diabetes mellitus ICD Codes: E11.65 - Type 2 diabetes mellitus with hyperglycemia Plan: Management as per primary (3) Uncontrolled hypertension ICD Codes: I10 - Essential (primary) hypertension Plan: Lisinopril has been held Currently on Doxazosin, Hydralazine, and Clonidine. Regimen was adjusted this AM by primary. Will re-eval BP tomorrow and adjust if needed tomorrow. (Chastity Morgan) Assessment and Plan The exam, history, and the medical decision-making described in the above note were completed with the assistance of the PA-C. I reviewed and agree with the findings presented. I attest that I had a [id number] encounter with the patient on the same day, and personally performed and documented my assessment and findings in the medical record. (Andrea Whitmore MD) Chastity Morgan Jul 09, 2017 18:08 Andrea Whitmore MD Jul 10, 2017 16:57
[2017-07-09 22:16] LABS: COMPLEMENT C3 118 MG/DL (90-180); COMPLEMENT C4 35 MG/DL (10-40)
[2017-07-09 22:23] LABS: IRON (FE) 45 MCG/DL (65-175); PHOSPHORUS 7.4 MG/DL (2.5-4.9)
[2017-07-09 22:55] LABS: % SATURATION IRON PROFILE 20.2 % (20-50); FERRITIN 105 NG/ML (26-388); IMMUNOGLOBULIN A 136 MG/DL (80-441); IMMUNOGLOBULIN G 556 MG/DL (650-1600); IMMUNOGLOBULIN M 18 MG/DL (43-265); KAPPA LAMBDA RATIO 1.91 (1.57-3.93); KAPPA LIGHT CHAIN 141 MG/DL (170-370); LAMBDA LIGHT CHAIN 74 MG/DL (90-210); TOTAL IRON BINDING CAPACITY 223 MCG/DL (250-450)
[2017-07-10] VITALS (8 sets, daily range): BP systolic 132–158; BP diastolic 77–93; PULSE 84–103; RESP 16–22; TEMP 96.6–97.2; O2SAT 96–99
[2017-07-10 00:18] LABS: PROTHROMBIN TIME - PATIENT 10.6 SEC (9.8-11.6)
[2017-07-10] MEDS: hydrALAZINE HCL 10 MG TAB PO SCH ×3 (06:15→21:21)
[2017-07-10 07:29] LABS: HEMATOCRIT 25.6 % (39.0-51.0); HEMOGLOBIN 8.7 GM/DL (13.0-17.0); MEAN CELL VOLUME 87.4 FL (80.0-100.0); MEAN CORPUSCULAR HEMOGLOBIN 29.6 PG (27.0-34.0); MEAN CORPUSCULAR HGB CONC 33.9 % (32.0-36.0); MEAN PLATELET VOLUME 8.7 FL (7.0-11.0); PLATELET COUNT 255 TH/MM3 (150-450); RED BLOOD COUNT 2.93 MIL/MM3 (4.50-5.90); RED CELL DISTRIBUTION WIDTH 14.2 % (11.6-17.2); WHITE BLOOD COUNT 7.7 TH/MM3 (4.0-11.0)
[2017-07-10 07:38] LABS: ALBUMIN 2.2 GM/DL (3.4-5.0); BICARBONATE 20.4 MEQ/L (21.0-32.0); CALCIUM 8.4 MG/DL (8.5-10.1); CREATININE 9.42 MG/DL (0.60-1.30)
[2017-07-10] MEDS: INSULIN ASPART SUPPLEMENTAL SCALE SQ SCH ×4 (08:00→21:21)
[2017-07-10] MEDS: SODIUM CHLORIDE 0.9% FLUSH 10 ML FLUSH IV FLUSH SCH ×2 (08:36→21:00)
[2017-07-10] MEDS: DOXAZOSIN MESYLATE 2 MG TAB PO SCH (08:36)
[2017-07-10] MEDS: CALCIUM ACETATE 667 MG CAP PO SCH ×3 (09:49→18:17)
--- NOTE | 2017-07-10 10:19 | PD.PN.STU ---
Subjective Remarks Patient is a 36 y/o male w/ past medical history of DM and HTN previously uncontrolled who is on hospital day 2 admitted for renal insufficency. He presented to the ED with 1 day of fatigue. Labs drawn by PCP on 06/29/17 reported to reveal Cr of 7. Creatine level drawn on 07/08/17 showed 9.61. Today patient has no complaints. Denies any fevers chills CP, sob, N/V/D. Denies any bone or muscle pain or recent fractures. DEnies any bowel or bladder issues. Denies blood in stool or urine. Per nurse patient is heading to IR for a perm cath. Objective Vitals Vital Signs Date Time Temp Pulse Resp B/P (MAP) Pulse Ox O2 Delivery O2 Flow Rate FiO2 07/10/17 08:00 96.8 88 16 151/82 (105) 97 07/10/17 04:37 92 07/10/17 04:00 96.6 91 22 132/79 (96) 96 07/10/17 00:00 97.1 92 22 155/77 (103) 96 07/09/17 23:52 129 07/09/17 20:06 100 07/09/17 20:00 96.1 91 24 160/85 (110) 97 07/09/17 16:00 97.1 91 17 179/93 (121) 100 07/09/17 13:00 97.2 80 19 181/105 (130) 100 07/09/17 11:27 85 16 165/94 (117) 98 I/O 07/09/17 07/09/17 07/09/17 07/10/17 07/10/17 07/10/17 07:00 15:00 23:00 07:00 15:00 23:00 Intake Total 1000 ml 1480 ml 360 ml Output Total 1300 ml 1650 ml Balance 1000 ml -1300 ml 1480 ml -1290 ml Intake Oral 480 ml 360 ml IV Total 1000 ml 1000 ml Output Urine Total 1300 ml 1650 ml # Voids 2 2 # Bowel Movements 0 0 Result Diagram: 07/10/17 0510 07/10/17 0510 Other Results Allergies Coded Allergies Type Severity Reaction Last Updated Verified No Known Allergies Allergy Unknown 07/08/17 No Recent Impressions Renal Ultrasound 07/09/17 0000 Signed Impressions: Service Date/Time: June 07:31 - CONCLUSION: 1. Mild diffusely increased cortical echogenicity consistent with medical renal disease. 2. No obstructive uropathy. 3. Trace right perinephric fluid. This is a nonspecific finding. 4. Small simple cyst in the superior pole of the right kidney. Ramy Guillaume MD Chest X-Ray 07/08/17 1644 Signed Impressions: Service Date/Time: Saturday, July 08, 2017 17:00 - CONCLUSION: Hypoinflation with no acute cardiopulmonary process. Adolfo Stevenson MD 07/08/17 07/08/17 07/09/17 07/09/17 07/10/17 07/10/17 06:00 18:00 06:00 18:00 06:00 18:00 Intake Total 2480 ml 360 ml Output Total 1300 ml 1650 ml Balance 1180 ml -1290 ml Intake Oral 480 ml 360 ml IV Total 2000 ml Output Urine Total 1300 ml 1650 ml # Voids 4 # Bowel Movements 0 0 Laboratory Tests Test 07/08/17 16:50 07/08/17 17:28 07/08/17 20:00 07/09/17 04:11 White Blood Count 8.8 TH/MM3 7.8 TH/MM3 Red Blood Count 3.57 MIL/MM3 3.38 MIL/MM3 Hemoglobin 10.1 GM/DL 9.7 GM/DL Hematocrit 31.8 % 29.9 % Mean Corpuscular Volume 89.2 FL 88.5 FL Mean Corpuscular Hemoglobin 28.2 PG 28.8 PG Mean Corpuscular Hemoglobin Concent 31.7 % 32.6 % Red Cell Distribution Width 14.6 % 14.3 % Platelet Count 320 TH/MM3 291 TH/MM3 Mean Platelet Volume 8.4 FL 8.6 FL Neutrophils (%) (Auto) 58.5 % 63.8 % Lymphocytes (%) (Auto) 22.7 % 20.2 % Monocytes (%) (Auto) 14.2 % 11.7 % Eosinophils (%) (Auto) 3.9 % 3.8 % Basophils (%) (Auto) 0.7 % 0.5 % Neutrophils # (Auto) 5.1 TH/MM3 5.0 TH/MM3 Lymphocytes # (Auto) 2.0 TH/MM3 1.6 TH/MM3 Monocytes # (Auto) 1.2 TH/MM3 0.9 TH/MM3 Eosinophils # (Auto) 0.3 TH/MM3 0.3 TH/MM3 Basophils # (Auto) 0.1 TH/MM3 0.0 TH/MM3 CBC Comment DIFF FINAL DIFF FINAL Differential Comment Blood Urea Nitrogen 74 MG/DL 75 MG/DL Creatinine 9.61 MG/DL 9.73 MG/DL Random Glucose 88 MG/DL 110 MG/DL Total Protein 6.6 GM/DL Albumin 2.6 GM/DL Calcium Level 8.8 MG/DL 8.7 MG/DL Alkaline Phosphatase 105 U/L Aspartate Amino Transf (AST/SGOT) 10 U/L Alanine Aminotransferase (ALT/SGPT) 17 U/L Total Bilirubin 0.2 MG/DL Sodium Level 142 MEQ/L 144 MEQ/L Potassium Level 4.7 MEQ/L 4.5 MEQ/L Chloride Level 111 MEQ/L 114 MEQ/L Carbon Dioxide Level 20.2 MEQ/L 19.0 MEQ/L Anion Gap 11 MEQ/L 11 MEQ/L Estimat Glomerular Filtration Rate 7 ML/MIN 7 ML/MIN Lipase 114 U/L B-Hydroxybutyrate 0.12 MMOL/L Venous Blood pH 7.27 Urine Color LIGHT-YELLOW Urine Turbidity CLEAR Urine pH 6.0 Urine Specific [place] 1.010 Urine Protein 300 mg/dL Urine Glucose (UA) 70 mg/dL Urine Ketones NEG mg/dL Urine Occult Blood SMALL Urine Nitrite NEG Urine Bilirubin NEG Urine Urobilinogen LESS THAN 2.0 MG/DL Urine Leukocyte Esterase NEG Urine RBC 2 /hpf Urine WBC 5 /hpf Urine Squamous Epithelial Cells <1 /hpf Urine Amorphous Sediment RARE Urine Mucus FEW /lpf Microscopic Urinalysis Comment CULT NOT INDICATED Test 07/09/17 21:07 07/09/17 23:46 07/10/17 05:10 Phosphorus Level 7.4 MG/DL 7.0 MG/DL Iron Level 45 MCG/DL Total Iron Binding Capacity 223 MCG/DL Percent Iron Saturation 20.2 % Ferritin 105 NG/ML 25-Hydroxy Vitamin D Total LESS THAN 4.2 ng/ML Parathyroid Hormone (Intact) 494.0 PG/ML Immunoglobulin G Total 556 MG/DL Immunoglobulin A 136 MG/DL Immunoglobulin M 18 MG/DL Immunoglobulin [place]/Lambda Ratio 1.91 Complement C3 118 MG/DL Complement C4 35 MG/DL [place] Light Chain Analysis 141 MG/DL Lambda Light Chain Analysis 74 MG/DL Prothrombin Time 10.6 SEC Prothromb Time International Ratio 1.0 RATIO Activated Partial Thromboplast Time 24.6 SEC White Blood Count 7.7 TH/MM3 Red Blood Count 2.93 MIL/MM3 Hemoglobin 8.7 GM/DL Hematocrit 25.6 % Mean Corpuscular Volume 87.4 FL Mean Corpuscular Hemoglobin 29.6 PG Mean Corpuscular Hemoglobin Concent 33.9 % Red Cell Distribution Width 14.2 % Platelet Count 255 TH/MM3 Mean Platelet Volume 8.7 FL Blood Urea Nitrogen 79 MG/DL Creatinine 9.42 MG/DL Random Glucose 92 MG/DL Albumin 2.2 GM/DL Calcium Level 8.4 MG/DL Sodium Level 141 MEQ/L Potassium Level 4.8 MEQ/L Chloride Level 110 MEQ/L Carbon Dioxide Level 20.4 MEQ/L Anion Gap 11 MEQ/L Estimat Glomerular Filtration Rate 8 ML/MIN Orders Procedure Category Date Status Time Complete Blood Count LAB 07/08/17 Complete With Diff 16:44 Comprehensive LAB 07/08/17 Complete Metabolic Panel 16:44 Lipase LAB 07/08/17 Complete 16:44 Urinalysis - C+S If LAB 07/08/17 Complete Indicated 16:44 Iv Access TX 07/08/17 Transmitted Insert/Monitor 16:44 Ecg Monitoring TX 07/08/17 Transmitted 16:44 Oximetry TX 07/08/17 Transmitted 16:44 Sodium Chloride 0.9% MED 07/08/17 Complete Flush (Ns Flush) 16:45 Electrocardiogram CAV 07/08/17 Resulted 16:44 Chest, Single Ap RADDIAG 07/08/17 Resulted 16:44 Influenzae A/B Antigen ANAHI 07/08/17 Complete 16:44 Beta Hydroxybutyrate LAB 07/08/17 Complete (Acetone) 16:44 Blood Gas Venous Ph LAB 07/08/17 Complete 16:44 Consult Nephrology CONS 07/08/17 Transmitted (Hub Use Only)Inp Phy CONS 07/08/17 Transmitted Cons/Ref Bladder Scan ISELA 07/08/17 Complete 18:38 Admit To Inpatient ADMITTING 07/08/17 Transmitted Vital Signs (Adult) ISELA 07/08/17 Complete 18:39 Activity Oob With ISELA 07/08/17 In Process Assistance 18:39 Tube Depatcher / ISELA 07/08/17 In Process Telemetry 18:39 Diet Renal DIET 07/08/17 Complete Dinner Sodium Chloride 0.9% MED 07/08/17 In Process Flush (Ns Flush) 18:45 Sodium Chloride 0.9% MED 07/08/17 In Process Flush (Ns Flush) 21:00 Basic Metabolic Panel LAB 07/09/17 Complete (Bmp) 06:00 Complete Blood Count LAB 07/09/17 Complete With Diff 06:00 Case Management CONS 07/08/17 Transmitted Consult 18:39 Naloxone Inj (Narcan MED 07/08/17 In Process Inj) 18:45 Inpatient ADMITTING 07/08/17 Transmitted Certification Ed Discharge Order TX 07/08/17 Transmitted 18:54 Admit Order (Ed Use ADMITTING 07/08/17 Transmitted Only) Vital Signs (Adult) ISELA 07/08/17 In Process 18:54 Activity Oob With ISELA 07/08/17 In Process Assistance 18:[address]: Other ISELA 07/08/17 In Process 18:54 Lisinopril (Prinivil) MED 07/09/17 Complete 09:00 Hydralazine Inj MED 07/08/17 In Process (Apresoline Inj) 21:00 Clonidine (Catapres) MED 07/08/17 In Process 21:00 Lactated Ringer's MED 07/08/17 Complete 1000 Ml Inj (Lr 1000 M 21:15 Bedside Glucose ISELA 07/08/17 In Process 21:04 Blood Glucose Goal ISELA 07/08/17 In Process (Criteria) 21:04 Hypoglycemia 70 Mg/Dl ISELA 07/08/17 In Process Or < 21:[address]: Shimon ISELA 07/08/17 In Process 21:04 Dextrose 50% In [place] MED 07/08/17 In Process (Vial) Inj (D50w (Vi 21:15 Glucagon Inj MED 07/08/17 In Process (Glucagon Inj) 21:15 Insulin Aspart MED 07/09/17 In Process Supplemtl Scale 08:00 Hydralazine Inj MED 07/08/17 Complete (Apresoline Inj) 23:30 Physician Name Changes ADMITTING 07/09/17 Transmitted US RADUS 07/09/17 Resulted Kidney/Renal/Bladder Sodium Chlor 0.9% MED 07/09/17 Complete 1... W/Sodium Bicarbon 16:00 Doxazosin (Cardura) MED 07/10/17 In Process 09:00 Doxazosin (Cardura) MED 07/09/17 Complete 15:30 Hydralazine MED 07/09/17 In Process (Apresoline) 15:30 Sodium Chlor 0.45%... MED 07/09/17 In Process W/Sodium Bicarbona 16:00 Cbc No Diff, Includes LAB 07/10/17 Complete Plts 06:00 Complement C3 LAB 07/09/17 Complete 15:57 Complement C4 LAB 07/09/17 Complete 15:57 Ferritin LAB 07/09/17 In Process 15:57 Hepatitis B Surface Ag LAB 07/09/17 In Process 15:57 Hepatitis C Ab,Igg LAB 07/09/17 In Process 15:57 Donya Profile LAB 07/09/17 In Process 15:57 Iron/Tibc Profile LAB 07/09/17 In Process 15:57 [place]/Lambda Free LAB 07/09/17 In Process Light Chain 15:57 Parathyroid Hormone LAB 07/09/17 Complete Intact 15:57 Phosphorus (Po4) LAB 07/09/17 In Process 15:57 Protein Creat Ratio, LAB 07/09/17 In Process Random Ur 15:57 Urine For Eosinophils LAB 07/09/17 In Process 15:57 Vitamin D, 25-Hydroxy LAB 07/09/17 In Process 15:57 Renal Functional Panel LAB 07/10/17 Complete 06:00 Total Protein 24hr LAB 07/09/17 In Process Urine 15:57 Antineutrophil LAB 07/09/17 In Process Cytoplasmic Abs 15:57 Prothrombin Time / LAB 07/09/17 Complete Inr (Pt) 16:04 Act Partial Throm LAB 07/09/17 Complete Time (Ptt) 16:04 Diet Renal DIET 07/09/17 Complete Lunch Blood Flow Rate ISELA 07/09/17 In Process 16:30 Dialysate Flow Rate ISELA 07/09/17 In Process 16:30 Dialyzer ISELA 07/09/17 In Process 16:30 Concentrate ISELA 07/09/17 In Process 16:30 Acid Concentrate ISELA 07/09/17 In Process 16:30 Length Of Dialysis ISELA 07/09/17 In Process 16:30 Frequency Of Dialysis ISELA 07/09/17 In Process 16:30 Dialysis Obtain ISELA 07/09/17 In Process 16:30 Needle Size ISELA 07/09/17 In Process 16:30 Dialysis Schedule ISELA 07/09/17 In Process 16:30 Resp Oxygen Jose C RSP 07/09/17 Logged Titrat 1-4 L Dialysis Weight ISELA 07/09/17 In Process 16:30 ^ Obtain As Needed ISELA 07/09/17 In Process 16:30 Sodium Chlor 0.9% MED 07/09/17 In Process 1000 Ml Inj (Ns 1000 M 16:30 Heparin Inj (Heparin MED 07/09/17 In Process Inj) 16:30 Sodium Chlor 0.9% MED 07/09/17 In Process 1000 Ml Inj (Ns 1000 M 16:30 Sodium Chlor 0.9% MED 07/09/17 In Process 1000 Ml Inj (Ns 1000 M 16:30 Mannitol Inj MED 07/09/17 In Process (Mannitol Inj) 16:30 Albumin 25% Inj MED 07/09/17 In Process (Albumin 25% Inj) 16:30 Sodium Chloride 0.9% MED 07/09/17 In Process Flush (Ns Flush) 16:30 Heparin Inj (Heparin MED 07/09/17 In Process Inj) 16:30 Gentamicin (Dialysis) MED 07/09/17 In Process Inj (Gentamicin (D 16:30 Ondansetron Inj MED 07/09/17 In Process (Zofran Inj) 16:30 Acetaminophen MED 07/09/17 In Process (Tylenol) 16:30 Diphenhydramine MED 07/09/17 In Process (Benadryl) 16:30 Nitroglycerin Sl MED 07/09/17 In Process (Nitrostat Sl) 16:30 Clonidine (Catapres) MED 07/09/17 In Process 16:30 Gelatin 12 Mm/7 Mm MED 07/09/17 In Process Top (Gelfoam 12 Mm/7 16:30 Calcium Acetate MED 07/10/17 In Process (Phoslo) 09:00 Occult Blood ANAHI 07/10/17 In Process (Hemoccult) Stool 08:54 Specimen To Be ISELA 07/10/17 In Process Collected 08:54 Diet Npo DIET 07/10/17 Transmitted Breakfast Invasive Rad Dept RADINV 07/10/17 Logged Consult Vital Signs Date Time Temp Pulse Resp B/P (MAP) Pulse Ox O2 Delivery O2 Flow Rate FiO2 07/10/17 08:00 96.8 88 16 151/82 (105) 97 07/10/17 04:37 92 07/10/17 04:00 96.6 91 22 132/79 (96) 96 07/10/17 00:00 97.1 92 22 155/77 (103) 96 07/09/17 23:52 129 07/09/17 20:06 100 07/09/17 20:00 96.1 91 24 160/85 (110) 97 07/09/17 16:00 97.1 91 17 179/93 (121) 100 07/09/17 13:00 97.2 80 19 181/105 (130) 100 07/09/17 11:27 85 16 165/94 (117) 98 07/09/17 08:44 88 14 177/100 (125) 98 07/09/17 06:00 82 16 173/77 (109) 07/09/17 05:00 86 14 180/78 (112) 98 Room Air 07/09/17 04:00 86 19 206/113 (144) 98 Room Air 07/09/17 02:00 98 20 168/97 (120) 99 07/09/17 01:15 100 20 175/91 (119) 99 07/09/17 00:04 102 22 175/84 (114) 98 07/08/17 22:30 94 22 184/91 (122) 99 07/08/17 21:30 92 22 177/91 (119) 07/08/17 20:28 84 20 198/91 (126) 98 Room Air 07/08/17 19:14 86 19 203/111 (141) Room Air 07/08/17 16:50 97 Room Air 07/08/17 16:45 86 20 115/66 (82) 100 Room Air 07/08/17 16:00 97.5 90 14 207/125 (152) 100 Objective Remarks GENERAL: WN/WD obese male observed sitting up in bed in no apparent distress SKIN: Warm and dry. HEAD: Normocephalic. EYES: Mild periorbital edema NECK: Supple, trachea midline. No JVD or lymphadenopathy. CARDIOVASCULAR: Regular rate and rhythm without murmurs, gallops, or rubs. RESPIRATORY: Breath sounds equal bilaterally. No accessory muscle use. GASTROINTESTINAL: Abdomen soft, non-tender, nondistended. MUSCULOSKELETAL: No cyanosis, or edema. BACK: Nontender without obvious deformity. No CVA tenderness. Medications and IVs Current Medications Medications (Trade) Dose Ordered Sig/Christine Route Start Time Stop Time Status Last Admin (NS Flush) 2 ml UNSCH PRN IV FLUSH 1/24/18 18:45 (NS Flush) 2 ml BID IV FLUSH 07/08/17 21:00 07/10/17 08:36 (Narcan Inj) 0.4 mg UNSCH PRN IV PUSH 07/08/17 18:45 (Apresoline Inj) 10 mg Q4H PRN IV PUSH 07/08/17 21:00 07/08/17 21:55 (Catapres) 0.1 mg Q6H PRN PO 07/08/17 21:00 07/09/17 04:04 (D50w (Vial) Inj) 50 ml UNSCH PRN IV PUSH 07/08/17 21:15 (Glucagon Inj) 1 mg UNSCH PRN OTHER 07/08/17 21:15 (NovoLOG SUPPLEMENTAL SCALE) 1 ACHS SLIDING SCALE SQ 07/09/17 08:00 07/09/17 17:05 (Cardura) 2 mg DAILY PO 07/10/17 09:00 07/10/17 08:36 (Apresoline) 10 mg Q8HR PO 07/09/17 15:30 07/10/17 06:15 Sodium Bicarbonate 75 meq/Sodium Chloride 1,075 ml @ 42 mls/hr Q24H IV 07/09/17 16:00 07/09/17 15:58 Sodium Chloride 1,000 ml @ 0 mls/hr Q0M PRN OTHER 07/09/17 16:30 (Heparin Inj) 8,000 units UNSCH PRN IV FLUSH 07/09/17 16:30 Sodium Chloride 1,000 ml @ 200 mls/hr Q5H PRN IV 07/09/17 16:30 Sodium Chloride 1,000 ml @ 0 mls/hr Q0M PRN OTHER 07/09/17 16:30 (Mannitol Inj) 12.5 gm UNSCH PRN IV 07/09/17 16:30 Albumin Human 100 ml @ 60 mls/hr UNSCH PRN IV 07/09/17 16:30 (NS Flush) 5 ml UNSCH PRN IV FLUSH 07/09/17 16:30 (Heparin Inj) UNSCH PRN .XX 07/09/17 16:30 (Gentamicin (Dialysis) Inj) 20 mg UNSCH PRN OTHER 07/09/17 16:30 (Zofran Inj) 4 mg UNSCH PRN IV PUSH 07/09/17 16:30 (Tylenol) 650 mg UNSCH PRN PO 07/09/17 16:30 (Benadryl) 25 mg UNSCH PRN PO 07/09/17 16:30 (Nitrostat Sl) 0.4 mg UNSCH PRN SL 07/09/17 16:30 (Catapres) 0.1 mg UNSCH PRN PO 07/09/17 16:30 (Gelfoam 12 Mm/7 Mm Top) 1 foam UNSCH PRN TOP 07/09/17 16:30 (Phoslo) 1,334 mg TID PO 07/10/17 09:00 07/10/17 09:49 A/P Assessment and Plan 1) Renal Insufficiency Acute vs Chronic - Creatine down to 9.43, BUN up 79, GFR stable 8. K 4.8. Nephrology consulted and recommended dialysis. Patient will be getting perm-cath today and starting hemodialysis today per nephrology. 2) Hypertensive Emergency - Currently on Doxasozin 2 mg, Clonidine 0.1 mg PRN, hydralizine 10 mg. BP trending down to 151/82 at 0800 07/10/17. Continue to monitor. Consider adding amlodipine if hypertension does not resolve with current regiment and dialysis. 3) DM - Stable on SSI 4) Hyperchloremic acidosis - Currently on IVF with bicarb. Will continue and reassess after hemodialysis, but should correct per nephrology 5) Hyperparathyroidism - Phosphate 7.0, Calcium corrected 9.84, 25 OH Vit D < 4.2. 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 As calcium is normal, will give phoslo 1334 mg with meals. Restrict to 800 mg phosphate diet. Monitor chemistries for hypercalcemia. 6) Anemia - Hgb trending down 10.1 -> 9.7 -> 8.7. MCV 87.4. Denies any blood in urine or stool. possible due to chronic disease. Will order Iron studies, fecal occult blood, and type & cross in case it continues to drop below 7. Fahad Vines Jul 10, 2017 10:19 Ayush Ryan MD Jul 10, 2017 18:54
[2017-07-10 13:05] LABS: HEPATITIS B SURFACE ANTIGEN NEGATIVE (NEGATIVE); HEPATITIS C AB IgG NEGATIVE (NEGATIVE)
[2017-07-10] MEDS ORDERED: MIDAZOLAM HCL 2 MG/2 ML VIAL ONE ×2 (13:36→14:16)
[2017-07-10] MEDS ORDERED: fentaNYL CITRATE 250 MCG/5 ML AMP ONE (13:36)
[2017-07-10] MEDS ORDERED: VANCOMYCIN HCL 1000 MG VIAL ONE (13:45)
[2017-07-10] MEDS ORDERED: ceFAZolin 2 GM PREMIX 50 ML ONE (13:45)
--- NOTE | 2017-07-10 15:24 | PD.RAD ---
Post Procedure Progress Note Pre Procedure Diagnosis: (1) CKD (chronic kidney disease) Post Procedure Diagnosis: (1) CKD (chronic kidney disease) Procedure Date: Jul 10, 2017 Supervising Radiologist: Adolfo Stevenson Proceduralist/Assist: Pearl Shaffer RT(R), RT Laila(R)() Anesthesia: Local, Analgesia, Conscious Sedation Plan of Activity Patient to Unit: ROPU Patient Condition: Good See PACS Report for procedural detail/treatment Central Venous Access Device Procedure 1 Right Internal Jugular Hemodialysis Catheter Tunneled Placement dual lumen American: 15 PICC Line Length (cm): 23 Adolfo Stevenson MD Jul 10, 2017 15:24
[2017-07-10] MEDS ORDERED: SODIUM CHLORIDE 0.9% FLUSH 10 ML FLUSH IV FLUSH PRN ×2 (15:30→16:15)
[2017-07-10] MEDS ORDERED: HEPARIN SODIUM - IV 2,000 UNITS/2 ML VIAL IV FLUSH PRN (15:30)
[2017-07-10] MEDS: SODIUM BICARBONATE 8.4% INJ 75 MEQ in SODIUM CHLOR 0.45% 1000 ML INJ 1,000 ML IV SCH ×2 (16:00→23:53)
[2017-07-10] MEDS ORDERED: SODIUM CHLOR 0.9% 1000 ML INJ 1,000 ML OTHER PRN ×2 (16:08)
[2017-07-10] MEDS ORDERED: SODIUM CHLOR 0.9% 1000 ML INJ 1,000 ML IV PRN (16:08)
--- NOTE | 2017-07-10 16:08 | HHI.NPPN ---
Subjective History of Present Illness The patient is a 36 yo AA male who presented to this facility 07/08 with complaints of fatigue & malaise. He saw his PCP last week for routine care and was advised that his renal functions were severely impaired with SCr at 7.95 and eGFR of 9. He unfortunately has been noncompliant with his medical care on the past and last labs prior to this were in 2014 showing a SCr of 2.05 and eGFR 46. He is a longstanding uncontrolled hypertensive and diabetic. He has been prescribed Lisinopril & Metformin in the past, but does not always take it. He currently is unemployed and has no health insurance which he states is why he has not been following up regularly with his primary. Admitting SCr at 9.61 with eGFR of 7. Worsened at time of consult to 9.73. Denies any NSAID use at home. No recent illness. No antibiotics. No urinary issues. Denies NVD. Besides progressive fatigue that his mother and sister who are present endorse, he denies any other symptoms. Interval History Pt seen during 1st HD today. Tunnel edema causing difficult treatment. Pt still drowsy post cath placement (Chastity Morgan) Review of Systems General Constitutional: Fatigue (Chastity Morgan) Objective Data Data Vital Signs Date Time Temp Pulse Resp B/P (MAP) Pulse Ox O2 Delivery O2 Flow Rate FiO2 07/10/17 12:00 97.2 84 18 158/93 (114) 99 07/10/17 09:50 98 07/10/17 08:00 96.8 88 16 151/82 (105) 97 07/10/17 04:37 92 07/10/17 04:00 96.6 91 22 132/79 (96) 96 07/10/17 00:00 97.1 92 22 155/77 (103) 96 07/09/17 23:52 129 07/09/17 20:06 100 07/09/17 20:00 96.1 91 24 160/85 (110) 97 07/09/17 16:00 97.1 91 17 179/93 (121) 100 (Chastity Morgan) -: 07/10/17 0510 07/10/17 0510 Imaging Last Impressions Renal Ultrasound 07/09/17 0000 Signed Impressions: Service Date/Time: June 07:31 - CONCLUSION: 1. Mild diffusely increased cortical echogenicity consistent with medical renal disease. 2. No obstructive uropathy. 3. Trace right perinephric fluid. This is a nonspecific finding. 4. Small simple cyst in the superior pole of the right kidney. Ramy Guillaume MD Chest X-Ray 07/08/17 1644 Signed Impressions: Service Date/Time: Saturday, July 08, 2017 17:00 - CONCLUSION: Hypoinflation with no acute cardiopulmonary process. Adolfo Stevenson MD Medication Review Current Medications Medications (Trade) Dose Ordered Sig/Christine Route Start Time Stop Time Status Last Admin (NS Flush) 2 ml UNSCH PRN IV FLUSH 07/08/17 18:45 (NS Flush) 2 ml BID IV FLUSH 07/08/17 21:00 07/10/17 08:36 (Narcan Inj) 0.4 mg UNSCH PRN IV PUSH 07/08/17 18:45 (Apresoline Inj) 10 mg Q4H PRN IV PUSH 07/08/17 21:00 07/08/17 21:55 (Catapres) 0.1 mg Q6H PRN PO 07/08/17 21:00 07/09/17 04:04 (D50w (Vial) Inj) 50 ml UNSCH PRN IV PUSH 07/08/17 21:15 (Glucagon Inj) 1 mg UNSCH PRN OTHER 07/08/17 21:15 (NovoLOG SUPPLEMENTAL SCALE) 1 ACHS SLIDING SCALE SQ 07/09/17 08:00 07/09/17 17:05 (Cardura) 2 mg DAILY PO 07/10/17 09:00 07/10/17 08:36 (Apresoline) 10 mg Q8HR PO 07/09/17 15:30 07/10/17 12:21 Sodium Bicarbonate 75 meq/Sodium Chloride 1,075 ml @ 42 mls/hr Q24H IV 07/09/17 16:00 07/09/17 15:58 Sodium Chloride 1,000 ml @ 0 mls/hr Q0M PRN OTHER 07/09/17 16:30 (Heparin Inj) 8,000 units UNSCH PRN IV FLUSH 07/09/17 16:30 Sodium Chloride 1,000 ml @ 200 mls/hr Q5H PRN IV 07/09/17 16:30 Sodium Chloride 1,000 ml @ 0 mls/hr Q0M PRN OTHER 07/09/17 16:30 (Mannitol Inj) 12.5 gm UNSCH PRN IV 07/09/17 16:30 Albumin Human 100 ml @ 60 mls/hr UNSCH PRN IV 07/09/17 16:30 (NS Flush) 5 ml UNSCH PRN IV FLUSH 07/09/17 16:30 (Heparin Inj) UNSCH PRN .XX 07/09/17 16:30 (Gentamicin (Dialysis) Inj) 20 mg UNSCH PRN OTHER 07/09/17 16:30 (Zofran Inj) 4 mg UNSCH PRN IV PUSH 07/09/17 16:30 (Tylenol) 650 mg UNSCH PRN PO 07/09/17 16:30 (Benadryl) 25 mg UNSCH PRN PO 07/09/17 16:30 (Nitrostat Sl) 0.4 mg UNSCH PRN SL 07/09/17 16:30 (Catapres) 0.1 mg UNSCH PRN PO 07/09/17 16:30 (Gelfoam 12 Mm/7 Mm Top) 1 foam UNSCH PRN TOP 07/09/17 16:30 (Phoslo) 1,334 mg TID PO 07/10/17 09:00 07/10/17 12:21 (NS Flush) UNSCH PRN IV FLUSH 07/10/17 15:30 (Heparin Inj) UNSCH PRN IV FLUSH 07/10/17 15:30 (Chastity Morgan) Physical Exam General Appearance: No Acute Distress, Comfortable (Chastity Morgan) Neck Neck Exam: Neck Supple, Trachea Midline (Chastity Morgan) Pulmonary Resp Exam: Clear Bilaterally, Breath Sounds Equal (Chastity Morgan) Cardiology CV Exam: Regular, Normal Sinus Rhythm (Chastity Morgan) Integumentary Skin Exam: Clear, Warm (Chastity Morgan) Extremeties Extremities Exam: No Edema (Chastity Morgan) Neurologic Neuro Exam: Awake, Oriented (Chastity Morgan) Psychiatric Psych Exam: Appropriate Responses (Chastity Morgan) Assessment/Plan Problem List: (1) ESRD (end stage renal disease) on dialysis ICD Codes: N18.6 - End stage renal disease; Z99.2 - Dependence on renal dialysis Plan: Pt seen during 1st HD session and appears to be tolerating well. 2nd session scheduled 07/11 Appreciate case management help regarding outpatient payor source. Case management at outpatient dialysis center is also aware of the situation. Pt verbally consented for them to call him with information as well. ([facility] [phone]) Avoid nephrotoxic medications including NSAIDs and iodinated contrast dyes. Avoid gadolinium. (2) Uncontrolled diabetes mellitus ICD Codes: E11.65 - Type 2 diabetes mellitus with hyperglycemia Plan: Management as per primary (3) Uncontrolled hypertension ICD Codes: I10 - Essential (primary) hypertension Plan: BP improving. Will resume Lisinopril (4) Anemia of renal disease ICD Codes: D63.1 - Anemia in chronic kidney disease Plan: Will start Ergocalciferol with HD (5) Hyperphosphatemia ICD Codes: E83.39 - Other disorders of phosphorus metabolism Plan: Start PhosLo with meals (6) Secondary hyperparathyroidism (of renal origin) ICD Codes: N25.81 - Secondary hyperparathyroidism of renal origin Plan: PTH elevated, but will within range expected for dialysis patients (150- 500). Will start Ergocalciferol for Vitamin D deficiency (7) Vitamin D deficiency ICD Codes: E55.9 - Vitamin D deficiency, unspecified (Chastity Morgan) Plan The exam, history, and the medical decision-making described in the above note were completed with the assistance of the PA-Valeriano. I reviewed and agree with the findings presented. I attest that I had a [id number] encounter with the patient on the same day, and personally performed and documented my assessment and findings in the medical record. (Andrea Whitmore MD) Chastity Morgan Jul 10, 2017 16:08 Andrea Whitmore MD Jul 10, 2017 16:56
[2017-07-10] MEDS ORDERED: MANNITOL 12.5 GM/50 ML VIAL IV PRN (16:15)
[2017-07-10] MEDS ORDERED: NITROGLYCERIN 0.4 MG SL 25 TABS/BTL SL PRN (16:15)
[2017-07-10] MEDS ORDERED: diphenhydrAMINE HCL 25 MG CAP PO PRN (16:15)
[2017-07-10] MEDS ORDERED: ALBUMIN 25% INJ 100 ML IV PRN (16:15)
[2017-07-10] MEDS ORDERED: ONDANSETRON HCL 4 MG/2 ML VIAL IV PUSH PRN (16:15)
[2017-07-10] MEDS ORDERED: ACETAMINOPHEN 325 MG TAB PO PRN (16:15)
[2017-07-10] MEDS ORDERED: HEPARIN SODIUM - IV 10,000 UNITS/10 ML VIAL IV FLUSH PRN (16:15)
[2017-07-10] MEDS ORDERED: GELATIN 12 MM/7 MM FOAM TOP PRN (16:15)
[2017-07-10] MEDS ORDERED: GENTAMICIN SULFATE 20 MG/2 ML VIAL OTHER PRN (16:15)
[2017-07-10] MEDS ORDERED: EPOETIN ALFA 10,000 UNITS/ML VIAL IV PUSH PRN (16:15)
[2017-07-10] MEDS ORDERED: cloNIDine HCL 0.1 MG TAB PO PRN (16:15)
[2017-07-10] MEDS ORDERED: HEPARIN SODIUM - IV 10,000 UNITS/10 ML VIAL PRN (16:15)
--- NOTE | 2017-07-10 16:41 | RADRPT ---
EXAM DATE/TIME: 07/10/2017 14:22 [place] COMPARISON: No previous studies available for comparison. INDICATIONS : Patient with history of renal insufficiency in need of permcath placement for dialysis. MEDICAL HISTORY : 1.HTN 2.DM SURGICAL HISTORY : None. ENCOUNTER: Initial ACUITY: 2 days PAIN SCORE: 0/10 FLUORO TIME: 2.7 minutes IMAGE SERIES: 1 SEDATION TIME: 45 minutes ACCESS: Right internal jugular vein SEDATION: 1.) 2.5 mg midazolam (Versed) IV 2.) 125 mcg fentanyl (Sublimaze) IV Prophylactic antibiotics were administered with appropriate pre-procedure timing. Vancomycin within 2 hours of procedure, Ancef (or alternative) within 1 hour of procedure. DEVICE: 1. 15 Congolese dual lumen 23 cm Iraheta II Plus catheter PROCEDURE : 1. Ultrasound-guided venipuncture. 2. PermaCath placement. 3. Conscious sedation with continuous EKG and oximetry monitoring. The risks, benefits and alternatives to the procedure were explained and verbal and written consent w as obtained. The site was prepped in sterile fashion. Full sterile technique was used, including ca p, mask, sterile gloves and gown and a large sterile sheet. Hand hygiene and 2% chlorhexidine and/or betadine/alcohol prep was utilized per protocol for cutaneous antisepsis. Sterile gel and sterile p robe cover were utilized for ultrasound guidance. The skin and subcutaneous tissues were infiltrated with local anesthetic solution. With ultrasound and fluoroscopic guidance a dermatotomy was created over the prescribed vein. A micr opuncture set was used to access the targeted vein and serial dilatation was performed to accept the prescribed length catheter. A subcutaneous tunnel was created in a retrograde fashion the catheter w as pulled through the tunnel. The catheter was flushed and assembled and locked with heparin. The c atheter was sutured in place. Conscious sedation was performed with the prescribed dosages and duration as above in the presence of an independent trained radiology nurse to assist in the monitoring of the patient. EKG and oximetry remained stable throughout the procedure. The patient tolerated the procedure well and there were n o complications. The patient was sent to post anesthesia recovery in stable condition. CONCLUSION: Uncomplicated PermaCath placement as above. Adolfo Stevenson MD on July 10, 2017 at 16:39 Board Certified Radiologist. This report was verified electronically.
--- NOTE | 2017-07-10 19:00 | HHI.PR ---
Subjective Remarks Patient is sp Permacath placement and hemodialysis today. Patient denies cp, sob. Denies nausea or vomiting. Denies abdominal pain. Objective Vitals Vital Signs Date Time Temp Pulse Resp B/P (MAP) Pulse Ox O2 Delivery O2 Flow Rate FiO2 07/10/17 17:39 99 21 07/10/17 12:00 97.2 84 18 158/93 (114) 99 07/10/17 09:50 98 07/10/17 08:00 96.8 88 16 151/82 (105) 97 07/10/17 04:37 92 07/10/17 04:00 96.6 91 22 132/79 (96) 96 07/10/17 00:00 97.1 92 22 155/77 (103) 96 07/09/17 23:52 129 07/09/17 20:06 100 07/09/17 20:00 96.1 91 24 160/85 (110) 97 I/O 07/09/17 07/09/17 07/09/17 07/10/17 07/10/17 07/10/17 07:00 15:00 23:00 07:00 15:00 23:00 Intake Total 1000 ml 1480 ml 360 ml 0 ml Output Total 1300 ml 1650 ml 3000 ml Balance 1000 ml -1300 ml 1480 ml -1290 ml -3000 ml Intake Oral 480 ml 360 ml 0 ml IV Total 1000 ml 1000 ml Output Urine Total 1300 ml 1650 ml 1000 ml Hemodialysis 2000 ml # Voids 2 2 # Bowel Movements 0 0 0 Result Diagram: 07/10/17 0510 07/10/17 0510 Imaging Last Impressions Catheter Placement X-Ray 07/10/17 0000 Signed Impressions: Service Date/Time: Monday, July 10, 2017 14:22 - CONCLUSION: Uncomplicated PermaCath placement as above. Adolfo Stevenson MD Renal Ultrasound 07/09/17 0000 Signed Impressions: Service Date/Time: June 07:31 - CONCLUSION: 1. Mild diffusely increased cortical echogenicity consistent with medical renal disease. 2. No obstructive uropathy. 3. Trace right perinephric fluid. This is a nonspecific finding. 4. Small simple cyst in the superior pole of the right kidney. Ramy Guillaume MD Chest X-Ray 07/08/17 5772 Signed Impressions: Service Date/Time: Saturday, July 08, 2017 17:00 - CONCLUSION: Hypoinflation with no acute cardiopulmonary process. Adolfo Stevenson MD Objective Remarks AAOX3 Facial edema with swollen eyelids Clear lungs BL S1S2 RRR, no MRG Abdomen soft, nt, nd no edema in lower extremities Procedures sp Permacath placement. Medications and IVs Current Medications Medications (Trade) Dose Ordered Sig/Christine Route Start Time Stop Time Status Last Admin (NS Flush) 2 ml UNSCH PRN IV FLUSH 07/08/17 18:45 (NS Flush) 2 ml BID IV FLUSH 07/08/17 21:00 07/10/17 08:36 (Narcan Inj) 0.4 mg UNSCH PRN IV PUSH 07/08/17 18:45 (Apresoline Inj) 10 mg Q4H PRN IV PUSH 07/08/17 21:00 07/08/17 21:55 (Catapres) 0.1 mg Q6H PRN PO 07/08/17 21:00 07/09/17 04:04 (D50w (Vial) Inj) 50 ml UNSCH PRN IV PUSH 07/08/17 21:15 (Glucagon Inj) 1 mg UNSCH PRN OTHER 07/08/17 21:15 (NovoLOG SUPPLEMENTAL SCALE) 1 ACHS SLIDING SCALE SQ 07/09/17 08:00 07/09/17 17:05 (Cardura) 2 mg DAILY PO 07/10/17 09:00 07/10/17 08:36 (Apresoline) 10 mg Q8HR PO 07/09/17 15:30 07/10/17 12:21 Sodium Bicarbonate 75 meq/Sodium Chloride 1,075 ml @ 42 mls/hr Q24H IV 07/09/17 16:00 07/09/17 15:58 Sodium Chloride 1,000 ml @ 0 mls/hr Q0M PRN OTHER 07/09/17 16:30 (Heparin Inj) 8,000 units UNSCH PRN IV FLUSH 07/09/17 16:30 Sodium Chloride 1,000 ml @ 200 mls/hr Q5H PRN IV 07/09/17 16:30 Sodium Chloride 1,000 ml @ 0 mls/hr Q0M PRN OTHER 07/09/17 16:30 (Mannitol Inj) 12.5 gm UNSCH PRN IV 07/09/17 16:30 Albumin Human 100 ml @ 60 mls/hr UNSCH PRN IV 07/09/17 16:30 (NS Flush) 5 ml UNSCH PRN IV FLUSH 07/09/17 16:30 (Heparin Inj) UNSCH PRN .XX 07/09/17 16:30 (Gentamicin (Dialysis) Inj) 20 mg UNSCH PRN OTHER 07/09/17 16:30 (Zofran Inj) 4 mg UNSCH PRN IV PUSH 07/09/17 16:30 (Tylenol) 650 mg UNSCH PRN PO 07/09/17 16:30 (Benadryl) 25 mg UNSCH PRN PO 07/09/17 16:30 (Nitrostat Sl) 0.4 mg UNSCH PRN SL 07/09/17 16:30 (Catapres) 0.1 mg UNSCH PRN PO 07/09/17 16:30 (Gelfoam 12 Mm/7 Mm Top) 1 foam UNSCH PRN TOP 07/09/17 16:30 (Phoslo) 1,334 mg TID PO 07/10/17 09:00 07/10/17 18:17 (NS Flush) UNSCH PRN IV FLUSH 07/10/17 15:30 (Heparin Inj) UNSCH PRN IV FLUSH 07/10/17 15:30 (Epogen Inj) 10,000 units UNSCH PRN IV PUSH 07/10/17 16:30 A/P Problem List: (1) Uncontrolled hypertension ICD Code: I10 - Essential (primary) hypertension (2) FERNANDEZ (acute kidney injury) ICD Code: N17.9 - Acute kidney failure, unspecified (3) CKD (chronic kidney disease) ICD Code: N18.9 - Chronic kidney disease, unspecified (4) Metabolic acidosis ICD Code: E87.2 - Acidosis Assessment and Plan 1. Acute on chronic renal insufficiency Patient's creatinine reportedly 7 on 06/29/17, 9.61 on admission K 4.7 Nephrology consulted - Recommendations pending. 07/09 Change IV fluids do NS + sodium bicarbonate due to acidosis. Renal ultrasound consistent with medical renal disease. No obstructive uropathy reported. Small simple cyst in the superior pole of the right kidney. 07/10 continue normal saline and sodium bicarbonate. The patient status post permacath placement and hemodialysis. Management as per nephrology. No diet. I will order a dietitian consultation for renal diet instruction. 2. Hypertensive crisis Continue home amlodipine Hydralazine, clonidine when necessary Monitor blood pressure 07/09 BP still elevated. Will DC Lisinopril and start patient on oral hydralazine and Cardura. Continue to monitor vital signs. 07/10 blood pressure now stable. Continue hydralazine and Cardura. 3. Type 2 diabetes mellitus Holding home oral antihyperglycemic SSI Monitor blood glucose 07/10 Blood sugars stable. Check hemoglobin A1c. 4. Hyperchloremia The CXR and start the patient on an as place sodium bicarbonate. Monitor BMP. FEN Renal diet Electrolytes: monitor and replete prn Discharge Planning Nephrology consult pending. BP elevated. Ayush Ryan MD Jul 10, 2017 19:00
[2017-07-11] VITALS (10 sets, daily range): BP systolic 137–173; BP diastolic 71–94; PULSE 86–106; RESP 18–21; TEMP 96.9–98.4; O2SAT 96–100
[2017-07-11] MEDS: hydrALAZINE HCL 10 MG TAB PO SCH ×3 (04:27→20:25)
[2017-07-11] MEDS: INSULIN ASPART SUPPLEMENTAL SCALE SQ SCH ×4 (08:00→20:29)
[2017-07-11] MEDS: CALCIUM ACETATE 667 MG CAP PO SCH ×3 (08:03→17:43)
[2017-07-11] MEDS: SODIUM CHLORIDE 0.9% FLUSH 10 ML FLUSH IV FLUSH SCH ×2 (08:03→20:30)
[2017-07-11] MEDS: DOXAZOSIN MESYLATE 2 MG TAB PO SCH (08:03)
[2017-07-11 09:23] LABS: HEMATOCRIT 24.4 % (39.0-51.0); HEMOGLOBIN 8.3 GM/DL (13.0-17.0); MEAN CORPUSCULAR HEMOGLOBIN 29.5 PG (27.0-34.0); MEAN CORPUSCULAR HGB CONC 33.9 % (32.0-36.0); PLATELET COUNT 251 TH/MM3 (150-450); WHITE BLOOD COUNT 8.1 TH/MM3 (4.0-11.0)
[2017-07-11 09:53] LABS: ALBUMIN 2.2 GM/DL (3.4-5.0); BICARBONATE 24.4 MEQ/L (21.0-32.0); BLOOD UREA NITROGEN 68 MG/DL (7-18); CALCIUM 8.4 MG/DL (8.5-10.1); CHLORIDE 106 MEQ/L (98-107); CREATININE 8.42 MG/DL (0.60-1.30); GLOMERULAR FILTRATION RATE 9 ML/MIN (>89); GLUCOSE,RANDOM 131 MG/DL (74-106); PHOSPHORUS 6.3 MG/DL (2.5-4.9); SODIUM (NA) 140 MEQ/L (136-145)
--- NOTE | 2017-07-11 11:31 | HHI.NPPN ---
Subjective History of Present Illness The patient is a 36 yo AA male who presented to this facility 07/08 with complaints of fatigue & malaise. He saw his PCP last week for routine care and was advised that his renal functions were severely impaired with SCr at 7.95 and eGFR of 9. He unfortunately has been noncompliant with his medical care on the past and last labs prior to this were in 2014 showing a SCr of 2.05 and eGFR 46. He is a longstanding uncontrolled hypertensive and diabetic. He has been prescribed Lisinopril & Metformin in the past, but does not always take it. He currently is unemployed and has no health insurance which he states is why he has not been following up regularly with his primary. Admitting SCr at 9.61 with eGFR of 7. Worsened at time of consult to 9.73. Denies any NSAID use at home. No recent illness. No antibiotics. No urinary issues. Denies NVD. Besides progressive fatigue that his mother and sister who are present endorse, he denies any other symptoms. Interval History Pt seen during 2nd HD Catheter working better today. He voices no complaints. Looks better today, but remains withdrawn (Chastity Morgan) Review of Systems General Constitutional: Fatigue (Chastity Morgan) Objective Data Data Vital Signs Date Time Temp Pulse Resp B/P (MAP) Pulse Ox O2 Delivery O2 Flow Rate FiO2 07/11/17 08:00 98.1 86 18 161/94 (116) 100 07/11/17 04:43 97.6 101 20 137/85 (102) 96 07/11/17 04:00 106 07/11/17 00:07 96.9 96 20 171/93 (119) 98 07/10/17 20:00 96.7 103 20 158/78 (104) 99 07/10/17 17:39 99 21 07/10/17 12:00 97.2 84 18 158/93 (114) 99 (Chastity Morgan) -: 07/11/17 0643 07/11/17 0643 Imaging Last Impressions Catheter Placement X-Ray 07/10/17 0000 Signed Impressions: Service Date/Time: Monday, July 10, 2017 14:22 - CONCLUSION: Uncomplicated PermaCath placement as above. Adolfo Stevenson MD Renal Ultrasound 07/09/17 0000 Signed Impressions: Service Date/Time: June 07:31 - CONCLUSION: 1. Mild diffusely increased cortical echogenicity consistent with medical renal disease. 2. No obstructive uropathy. 3. Trace right perinephric fluid. This is a nonspecific finding. 4. Small simple cyst in the superior pole of the right kidney. Ramy Guillaume MD Chest X-Ray 07/08/17 1644 Signed Impressions: Service Date/Time: Saturday, July 08, 2017 17:00 - CONCLUSION: Hypoinflation with no acute cardiopulmonary process. Adolfo Stevenson MD Tubes & Lines: Perma-Cath Medication Review Current Medications Medications (Trade) Dose Ordered Sig/Christine Route Start Time Stop Time Status Last Admin (NS Flush) 2 ml UNSCH PRN IV FLUSH 07/08/17 18:45 (NS Flush) 2 ml BID IV FLUSH 07/08/17 21:00 07/10/17 08:36 (Narcan Inj) 0.4 mg UNSCH PRN IV PUSH 07/08/17 18:45 (Apresoline Inj) 10 mg Q4H PRN IV PUSH 07/08/17 21:00 07/08/17 21:55 (Catapres) 0.1 mg Q6H PRN PO 07/08/17 21:00 07/09/17 04:04 (D50w (Vial) Inj) 50 ml UNSCH PRN IV PUSH 07/08/17 21:15 (Glucagon Inj) 1 mg UNSCH PRN OTHER 07/08/17 21:15 (NovoLOG SUPPLEMENTAL SCALE) 1 ACHS SLIDING SCALE SQ 07/09/17 08:00 07/10/17 21:21 (Cardura) 2 mg DAILY PO 07/10/17 09:00 07/10/17 08:36 (Apresoline) 10 mg Q8HR PO 07/09/17 15:30 07/11/17 04:27 Sodium Bicarbonate 75 meq/Sodium Chloride 1,075 ml @ 42 mls/hr Q24H IV 07/09/17 16:00 07/10/17 23:53 Sodium Chloride 1,000 ml @ 0 mls/hr Q0M PRN OTHER 07/09/17 16:30 (Heparin Inj) 8,000 units UNSCH PRN IV FLUSH 07/09/17 16:30 Sodium Chloride 1,000 ml @ 200 mls/hr Q5H PRN IV 07/09/17 16:30 Sodium Chloride 1,000 ml @ 0 mls/hr Q0M PRN OTHER 07/09/17 16:30 (Mannitol Inj) 12.5 gm UNSCH PRN IV 07/09/17 16:30 Albumin Human 100 ml @ 60 mls/hr UNSCH PRN IV 07/09/17 16:30 (NS Flush) 5 ml UNSCH PRN IV FLUSH 07/09/17 16:30 (Heparin Inj) UNSCH PRN .XX 07/09/17 16:30 (Gentamicin (Dialysis) Inj) 20 mg UNSCH PRN OTHER 07/09/17 16:30 (Zofran Inj) 4 mg UNSCH PRN IV PUSH 07/09/17 16:30 (Tylenol) 650 mg UNSCH PRN PO 07/09/17 16:30 (Benadryl) 25 mg UNSCH PRN PO 07/09/17 16:30 (Nitrostat Sl) 0.4 mg UNSCH PRN SL 07/09/17 16:30 (Catapres) 0.1 mg UNSCH PRN PO 07/09/17 16:30 (Gelfoam 12 Mm/7 Mm Top) 1 foam UNSCH PRN TOP 07/09/17 16:30 (Phoslo) 1,334 mg TID PO 07/10/17 09:00 07/11/17 08:03 (NS Flush) UNSCH PRN IV FLUSH 07/10/17 15:30 (Heparin Inj) UNSCH PRN IV FLUSH 07/10/17 15:30 (Epogen Inj) 10,000 units UNSCH PRN IV PUSH 07/10/17 16:30 (Chastity Morgan) Physical Exam General Appearance: No Acute Distress, Comfortable (Chastity Morgan) Neck Neck Exam: Neck Supple, Trachea Midline (Chastity Morgan) Pulmonary Resp Exam: Clear Bilaterally, Breath Sounds Equal (Chastity Morgan) Cardiology CV Exam: Regular, Normal Sinus Rhythm (Chastity Morgan) Integumentary Skin Exam: Clear, Warm (Chastity Morgan) Extremeties Extremities Exam: No Edema (Chastity Morgan) Neurologic Neuro Exam: Awake, Oriented (Chastity Morgan) Psychiatric Psych Exam: Appropriate Responses (Chastity Morgan) Assessment/Plan Problem List: (1) ESRD (end stage renal disease) on dialysis ICD Codes: N18.6 - End stage renal disease; Z99.2 - Dependence on renal dialysis Plan: Seen during 2nd HD. Will continue on MWF schedule UOP remains quite good so will keep UF at a minimum. Appreciate case management help regarding outpatient payor source. Case management at outpatient dialysis center is also aware of the situation. Pt verbally consented for them to call him with information as well. ([facility] [phone]) Avoid nephrotoxic medications including NSAIDs and iodinated contrast dyes. Avoid gadolinium. (2) Uncontrolled diabetes mellitus ICD Codes: E11.65 - Type 2 diabetes mellitus with hyperglycemia Plan: Management as per primary (3) Uncontrolled hypertension ICD Codes: I10 - Essential (primary) hypertension Plan: BP improving. Continue on Hydralazine. Add Amlodipine (4) Anemia of renal disease ICD Codes: D63.1 - Anemia in chronic kidney disease Plan: Continue Epo with HD (5) Hyperphosphatemia ICD Codes: E83.39 - Other disorders of phosphorus metabolism Plan: Continue on PhosLo (6) Secondary hyperparathyroidism (of renal origin) ICD Codes: N25.81 - Secondary hyperparathyroidism of renal origin Plan: PTH elevated, but will within range expected for dialysis patients (150- 500). Continue Ergocalciferol for Vitamin D deficiency (7) Vitamin D deficiency ICD Codes: E55.9 - Vitamin D deficiency, unspecified (Chastity Morgan) Plan The exam, history, and the medical decision-making described in the above note were completed with the assistance of the PABe. I reviewed and agree with the findings presented. (Andrea Whitmore MD) Chastity Morgan Jul 11, 2017 11:30 Andrea Whitmore MD Jul 11, 2017 16:47
[2017-07-11] MEDS ORDERED: amLODIPine BESYLATE 5 MG TAB PO ONE (12:00)
[2017-07-11] MEDS: HEPARIN SODIUM - IV 10,000 UNITS/10 ML VIAL PRN (12:06)
[2017-07-11] MEDS: EPOETIN ALFA 10,000 UNITS/ML VIAL IV PUSH PRN (12:07)
--- NOTE | 2017-07-11 18:15 | HHI.PR ---
Subjective Remarks The patient is status post hemodialysis. The patient denies chest pain, short of breath, nausea, vomiting, fever and chills. Blood pressure labile. Objective Vitals Vital Signs Date Time Temp Pulse Resp B/P (MAP) Pulse Ox O2 Delivery O2 Flow Rate FiO2 07/11/17 16:00 97.5 88 18 147/77 (100) 97 07/11/17 13:21 100 07/11/17 12:00 97.4 96 18 173/71 (105) 100 07/11/17 08:00 98.1 86 18 161/94 (116) 100 07/11/17 04:43 97.6 101 20 137/85 (102) 96 07/11/17 04:00 106 07/11/17 00:07 96.9 96 20 171/93 (119) 98 07/10/17 20:00 96.7 103 20 158/78 (104) 99 I/O 07/10/17 07/10/17 07/10/17 07/11/17 07/11/17 07/11/17 07:00 15:00 23:00 07:00 15:00 23:00 Intake Total 360 ml 0 ml 900 ml 960 ml Output Total 1650 ml 3000 ml 300 ml 500 ml Balance -1290 ml -3000 ml 600 ml 460 ml Intake Oral 360 ml 0 ml 960 ml IV Total 900 ml Output Urine Total 1650 ml 1000 ml 300 ml Hemodialysis 2000 ml 500 ml # Voids 1 # Bowel Movements 0 0 Result Diagram: 07/11/17 0643 07/11/17 0643 Imaging Last Impressions Catheter Placement X-Ray 07/10/17 0000 Signed Impressions: Service Date/Time: Monday, July 10, 2017 14:22 - CONCLUSION: Uncomplicated PermaCath placement as above. Adolfo Stevenson MD Renal Ultrasound 07/09/17 0000 Signed Impressions: Service Date/Time: June 07:31 - CONCLUSION: 1. Mild diffusely increased cortical echogenicity consistent with medical renal disease. 2. No obstructive uropathy. 3. Trace right perinephric fluid. This is a nonspecific finding. 4. Small simple cyst in the superior pole of the right kidney. Ramy Guillaume MD Chest X-Ray 07/08/17 5905 Signed Impressions: Service Date/Time: Saturday, July 08, 2017 17:00 - CONCLUSION: Hypoinflation with no acute cardiopulmonary process. Adolfo Stevenson MD Objective Remarks AAOX3 Facial edema with swollen eyelids Clear lungs BL S1S2 RRR, no MRG Abdomen soft, nt, nd no edema in lower extremities Procedures sp Permacath placement. Medications and IVs Current Medications Medications (Trade) Dose Ordered Sig/Christine Route Start Time Stop Time Status Last Admin (NS Flush) 2 ml UNSCH PRN IV FLUSH 07/08/17 18:45 (NS Flush) 2 ml BID IV FLUSH 07/08/17 21:00 07/10/17 08:36 (Narcan Inj) 0.4 mg UNSCH PRN IV PUSH 07/08/17 18:45 (Apresoline Inj) 10 mg Q4H PRN IV PUSH 07/08/17 21:00 07/08/17 21:55 (Catapres) 0.1 mg Q6H PRN PO 07/08/17 21:00 07/09/17 04:04 (D50w (Vial) Inj) 50 ml UNSCH PRN IV PUSH 07/08/17 21:15 (Glucagon Inj) 1 mg UNSCH PRN OTHER 07/08/17 21:15 (NovoLOG SUPPLEMENTAL SCALE) 1 ACHS SLIDING SCALE SQ 07/09/17 08:00 07/10/17 21:21 (Cardura) 2 mg DAILY PO 07/10/17 09:00 07/10/17 08:36 Sodium Chloride 1,000 ml @ 0 mls/hr Q0M PRN OTHER 07/09/17 16:30 (Heparin Inj) 8,000 units UNSCH PRN IV FLUSH 07/09/17 16:30 Sodium Chloride 1,000 ml @ 200 mls/hr Q5H PRN IV 07/09/17 16:30 Sodium Chloride 1,000 ml @ 0 mls/hr Q0M PRN OTHER 07/09/17 16:30 (Mannitol Inj) 12.5 gm UNSCH PRN IV 07/09/17 16:30 Albumin Human 100 ml @ 60 mls/hr UNSCH PRN IV 07/09/17 16:30 (NS Flush) 5 ml UNSCH PRN IV FLUSH 07/09/17 16:30 (Heparin Inj) UNSCH PRN .XX 07/09/17 16:30 07/11/17 12:06 (Gentamicin (Dialysis) Inj) 20 mg UNSCH PRN OTHER 07/09/17 16:30 07/11/17 12:06 (Zofran Inj) 4 mg UNSCH PRN IV PUSH 07/09/17 16:30 (Tylenol) 650 mg UNSCH PRN PO 07/09/17 16:30 (Benadryl) 25 mg UNSCH PRN PO 07/09/17 16:30 (Nitrostat Sl) 0.4 mg UNSCH PRN SL 07/09/17 16:30 (Catapres) 0.1 mg UNSCH PRN PO 07/09/17 16:30 (Gelfoam 12 Mm/7 Mm Top) 1 foam UNSCH PRN TOP 07/09/17 16:30 (Phoslo) 1,334 mg TID PO 07/10/17 09:00 07/11/17 17:43 (NS Flush) UNSCH PRN IV FLUSH 07/10/17 15:30 (Heparin Inj) UNSCH PRN IV FLUSH 07/10/17 15:30 (Epogen Inj) 10,000 units UNSCH PRN IV PUSH 07/10/17 16:30 07/11/17 12:07 (Apresoline) 10 mg Q8HR PO 07/11/17 14:00 07/11/17 12:57 Urinary Catheter: No Vascular Central Line Catheter: Yes Line: Central Venous Catheter Side: Right A/P Problem List: (1) Uncontrolled hypertension ICD Code: I10 - Essential (primary) hypertension (2) FERNANDEZ (acute kidney injury) ICD Code: N17.9 - Acute kidney failure, unspecified (3) CKD (chronic kidney disease) ICD Code: N18.9 - Chronic kidney disease, unspecified (4) Metabolic acidosis ICD Code: E87.2 - Acidosis Assessment and Plan 1. Acute on chronic renal insufficiency Patient's creatinine reportedly 7 on 06/29/17, 9.61 on admission K 4.7 Nephrology consulted - Recommendations pending. 07/09 Change IV fluids do NS + sodium bicarbonate due to acidosis. Renal ultrasound consistent with medical renal disease. No obstructive uropathy reported. Small simple cyst in the superior pole of the right kidney. 07/10 continue normal saline and sodium bicarbonate. The patient status post permacath placement and hemodialysis. Management as per nephrology. 07/11 sp second session of hemodialysis. Continue normal saline and sodium bicarbonate since acidosis has resolved. Continue renal diet. I will order a dietitian consultation for renal diabetic diet instruction. 2. Hypertensive crisis Continue home amlodipine Hydralazine, clonidine when necessary Monitor blood pressure 07/09 BP still elevated. Will DC Lisinopril and start patient on oral hydralazine and Cardura. Continue to monitor vital signs. 07/10 blood pressure now stable. Continue hydralazine and Cardura. 07/11 BP Labile, however patient did not get Cardura since he was on dialysis. Continue to monitor vital signs. 3. Type 2 diabetes mellitus Holding home oral antihyperglycemic SSI Monitor blood glucose 07/10 Blood sugars stable. Check hemoglobin A1c. 07/11 hemoglobin A1c pending. 4. Hyperchloremia The CXR and start the patient on an as place sodium bicarbonate. Monitor BMP. FEN Renal diet Electrolytes: monitor and replete prn Discharge Planning Discharge pending nephrology clearance. Ayush Ryan MD Jul 11, 2017 18:15
[2017-07-12] VITALS (9 sets, daily range): BP systolic 148–162; BP diastolic 79–94; PULSE 76–99; RESP 19–21; TEMP 96.6–98.4; O2SAT 96–99
[2017-07-12] MEDS: hydrALAZINE HCL 10 MG TAB PO SCH ×3 (04:25→22:17)
[2017-07-12] MEDS: INSULIN ASPART SUPPLEMENTAL SCALE SQ SCH ×5 (08:00→21:00)
[2017-07-12 09:23] LABS: HEMATOCRIT 27.9 % (39.0-51.0); HEMOGLOBIN 9.2 GM/DL (13.0-17.0); MEAN CELL VOLUME 87.4 FL (80.0-100.0); MEAN CORPUSCULAR HEMOGLOBIN 28.7 PG (27.0-34.0); MEAN CORPUSCULAR HGB CONC 32.8 % (32.0-36.0); MEAN PLATELET VOLUME 8.7 FL (7.0-11.0); PLATELET COUNT 250 TH/MM3 (150-450); RED BLOOD COUNT 3.19 MIL/MM3 (4.50-5.90); RED CELL DISTRIBUTION WIDTH 14.3 % (11.6-17.2); WHITE BLOOD COUNT 7.3 TH/MM3 (4.0-11.0)
[2017-07-12 09:46] LABS: ALBUMIN 2.4 GM/DL (3.4-5.0); BICARBONATE 26.9 MEQ/L (21.0-32.0); CALCIUM 8.5 MG/DL (8.5-10.1); CREATININE 8.22 MG/DL (0.60-1.30); PHOSPHORUS 4.7 MG/DL (2.5-4.9)
[2017-07-12] MEDS: CALCIUM ACETATE 667 MG CAP PO SCH ×3 (10:36→17:56)
[2017-07-12] MEDS: DOXAZOSIN MESYLATE 2 MG TAB PO SCH (10:36)
[2017-07-12 11:02] LABS: HEMOGLOBIN A1C 6.1 % (4.3-6.0)
--- NOTE | 2017-07-12 11:54 | HHI.PR ---
Subjective Remarks Patient denies chest pain or shortness of breath. Denies nausea or vomiting. Afebrile. Objective Vitals Vital Signs Date Time Temp Pulse Resp B/P (MAP) Pulse Ox O2 Delivery O2 Flow Rate FiO2 07/12/17 08:00 98.0 83 20 158/91 (113) 96 07/12/17 04:00 96.6 83 21 156/94 (114) 98 07/12/17 03:58 82 07/12/17 00:11 98.4 89 21 162/90 (114) 96 07/12/17 00:00 76 07/11/17 21:03 88 07/11/17 20:00 98.4 89 21 164/91 (115) 96 07/11/17 19:30 96 21 07/11/17 16:00 97.5 88 18 147/77 (100) 97 07/11/17 13:21 100 07/11/17 12:00 97.4 96 18 173/71 (105) 100 I/O 07/11/17 07/11/17 07/11/17 07/12/17 07/12/17 07/12/17 07:00 15:00 23:00 07:00 15:00 23:00 Intake Total 900 ml 960 ml 680 ml 400 ml 120 ml Output Total 300 ml 500 ml 600 ml Balance 600 ml 460 ml 680 ml -200 ml 120 ml Intake Oral 960 ml 480 ml 400 ml 120 ml IV Total 900 ml 200 ml Output Urine Total 300 ml 600 ml Hemodialysis 500 ml # Voids 1 1 Result Diagram: 07/12/17 0645 07/12/17 0645 Imaging Last 72 hours Impressions Catheter Placement X-Ray 07/10/17 0000 Signed Impressions: Service Date/Time: Monday, July 10, 2017 14:22 - CONCLUSION: Uncomplicated PermaCath placement as above. Adolfo Stevenson MD Objective Remarks AAOX3 Facial edema with swollen eyelids Clear lungs BL S1S2 RRR, no MRG Abdomen soft, nt, nd no edema in lower extremities Procedures sp Permacath placement. Medications and IVs Current Medications Medications (Trade) Dose Ordered Sig/Christine Route Start Time Stop Time Status Last Admin (NS Flush) 2 ml UNSCH PRN IV FLUSH 07/08/17 18:45 (NS Flush) 2 ml BID IV FLUSH 07/08/17 21:00 07/11/17 20:30 (Narcan Inj) 0.4 mg UNSCH PRN IV PUSH 07/08/17 18:45 (Apresoline Inj) 10 mg Q4H PRN IV PUSH 07/08/17 21:00 07/08/17 21:55 (Catapres) 0.1 mg Q6H PRN PO 07/08/17 21:00 07/09/17 04:04 (D50w (Vial) Inj) 50 ml UNSCH PRN IV PUSH 07/08/17 21:15 (Glucagon Inj) 1 mg UNSCH PRN OTHER 07/08/17 21:15 (NovoLOG SUPPLEMENTAL SCALE) 1 ACHS SLIDING SCALE SQ 07/09/17 08:00 07/10/17 21:21 (Cardura) 2 mg DAILY PO 07/10/17 09:00 07/12/17 10:36 Sodium Chloride 1,000 ml @ 0 mls/hr Q0M PRN OTHER 07/09/17 16:30 (Heparin Inj) 8,000 units UNSCH PRN IV FLUSH 07/09/17 16:30 Sodium Chloride 1,000 ml @ 200 mls/hr Q5H PRN IV 07/09/17 16:30 Sodium Chloride 1,000 ml @ 0 mls/hr Q0M PRN OTHER 07/09/17 16:30 (Mannitol Inj) 12.5 gm UNSCH PRN IV 07/09/17 16:30 Albumin Human 100 ml @ 60 mls/hr UNSCH PRN IV 07/09/17 16:30 (NS Flush) 5 ml UNSCH PRN IV FLUSH 07/09/17 16:30 (Heparin Inj) UNSCH PRN .XX 07/09/17 16:30 07/11/17 12:06 (Gentamicin (Dialysis) Inj) 20 mg UNSCH PRN OTHER 07/09/17 16:30 07/11/17 12:06 (Zofran Inj) 4 mg UNSCH PRN IV PUSH 07/09/17 16:30 (Tylenol) 650 mg UNSCH PRN PO 07/09/17 16:30 (Benadryl) 25 mg UNSCH PRN PO 07/09/17 16:30 (Nitrostat Sl) 0.4 mg UNSCH PRN SL 07/09/17 16:30 (Catapres) 0.1 mg UNSCH PRN PO 07/09/17 16:30 (Gelfoam 12 Mm/7 Mm Top) 1 foam UNSCH PRN TOP 07/09/17 16:30 (Phoslo) 1,334 mg TID PO 07/10/17 09:00 07/12/17 10:36 (NS Flush) UNSCH PRN IV FLUSH 07/10/17 15:30 (Heparin Inj) UNSCH PRN IV FLUSH 07/10/17 15:30 (Epogen Inj) 10,000 units UNSCH PRN IV PUSH 07/10/17 16:30 07/11/17 12:07 (Apresoline) 10 mg Q8HR PO 07/11/17 14:00 07/12/17 04:25 Vascular Central Line Catheter: Yes Assessment to: Continue Line: Central Venous Catheter Side: Right Reason for Continuation Hemodialysis. A/P Problem List: (1) Uncontrolled hypertension ICD Code: I10 - Essential (primary) hypertension Status: Acute (2) FERNANDEZ (acute kidney injury) ICD Code: N17.9 - Acute kidney failure, unspecified Status: Acute (3) CKD (chronic kidney disease) ICD Code: N18.9 - Chronic kidney disease, unspecified Status: Chronic (4) Metabolic acidosis ICD Code: E87.2 - Acidosis Status: Resolved Assessment and Plan 1. Acute on chronic renal insufficiency Patient's creatinine reportedly 7 on 06/29/17, 9.61 on admission K 4.7 Nephrology consulted - Recommendations pending. 07/09 Change IV fluids do NS + sodium bicarbonate due to acidosis. Renal ultrasound consistent with medical renal disease. No obstructive uropathy reported. Small simple cyst in the superior pole of the right kidney. 07/10 continue normal saline and sodium bicarbonate. The patient status post permacath placement and hemodialysis. Management as per nephrology. 07/11 sp second session of hemodialysis. Continue normal saline and sodium bicarbonate since acidosis has resolved. Continue renal diet. I will order a dietitian consultation for renal diabetic diet instruction. 2. Hypertensive crisis Continue home amlodipine Hydralazine, clonidine when necessary Monitor blood pressure 07/09 BP still elevated. Will DC Lisinopril and start patient on oral hydralazine and Cardura. Continue to monitor vital signs. 07/10 blood pressure now stable. Continue hydralazine and Cardura. 07/12 pressure is improving. Continue Zosyn and Cardura. Continue to monitor vital signs. 3. Type 2 diabetes mellitus Holding home oral antihyperglycemic SSI Monitor blood glucose 07/10 Blood sugars stable. Check hemoglobin A1c. 07/11 hemoglobin A1c pending. 07/12 hemoglobin A1c 6.1, the diabetes is well controlled. 4. Metabolic acidosis 07/12 Status post hypotonic saline with. Metabolic acidosis secondary to acute kidney injury, bicarbonate 20.2 on admission, trending up. Continue to monitor BMP. FEN Renal diet Electrolytes: monitor and replete prn Discharge Planning Discharge pending nephrology clearance and outpatient dialysis arranged. Ayush Ryan MD Jul 12, 2017 11:54
[2017-07-12] MEDS: SODIUM CHLORIDE 0.9% FLUSH 10 ML FLUSH IV FLUSH SCH ×2 (13:43→22:21)
[2017-07-13] VITALS (12 sets, daily range): BP systolic 136–163; BP diastolic 76–96; PULSE 72–103; RESP 18–19; TEMP 96.1–97.2; O2SAT 96–98
[2017-07-13] MEDS: hydrALAZINE HCL 10 MG TAB PO SCH ×3 (05:25→20:50)
[2017-07-13] MEDS: INSULIN ASPART SUPPLEMENTAL SCALE SQ SCH ×4 (08:00→21:17)
[2017-07-13 09:01] LABS: HEMATOCRIT 28.6 % (39.0-51.0); HEMOGLOBIN 9.5 GM/DL (13.0-17.0); MEAN CELL VOLUME 88.2 FL (80.0-100.0); MEAN CORPUSCULAR HEMOGLOBIN 29.2 PG (27.0-34.0); MEAN CORPUSCULAR HGB CONC 33.1 % (32.0-36.0); MEAN PLATELET VOLUME 8.5 FL (7.0-11.0); PLATELET COUNT 240 TH/MM3 (150-450); RED BLOOD COUNT 3.24 MIL/MM3 (4.50-5.90); RED CELL DISTRIBUTION WIDTH 14.4 % (11.6-17.2); WHITE BLOOD COUNT 7.9 TH/MM3 (4.0-11.0)
[2017-07-13] MEDS: CALCIUM ACETATE 667 MG CAP PO SCH ×3 (09:04→17:03)
[2017-07-13] MEDS: SODIUM CHLORIDE 0.9% FLUSH 10 ML FLUSH IV FLUSH SCH ×2 (09:05→20:50)
--- NOTE | 2017-07-13 09:39 | HHI.NPPN ---
Subjective History of Present Illness The patient is a 36 yo AA male who presented to this facility 07/08 with complaints of fatigue & malaise. He saw his PCP last week for routine care and was advised that his renal functions were severely impaired with SCr at 7.95 and eGFR of 9. He unfortunately has been noncompliant with his medical care on the past and last labs prior to this were in 2014 showing a SCr of 2.05 and eGFR 46. He is a longstanding uncontrolled hypertensive and diabetic. He has been prescribed Lisinopril & Metformin in the past, but does not always take it. He currently is unemployed and has no health insurance which he states is why he has not been following up regularly with his primary. Admitting SCr at 9.61 with eGFR of 7. Worsened at time of consult to 9.73. Denies any NSAID use at home. No recent illness. No antibiotics. No urinary issues. Denies NVD. Besides progressive fatigue that his mother and sister who are present endorse, he denies any other symptoms. Interval History Pt sitting on edge of bed eating breakfast. s/p HD 07/10 & 07/11 States he is feeling much better---more alert, better appetite, mentally more clear (Chastity Morgan) Objective Data Data Vital Signs Date Time Temp Pulse Resp B/P (MAP) Pulse Ox O2 Delivery O2 Flow Rate FiO2 07/13/17 08:00 97.2 88 19 158/93 (114) 96 07/13/17 04:00 96.1 96 19 160/96 (117) 97 07/13/17 03:53 103 07/13/17 00:16 100 07/13/17 00:08 96.2 92 19 144/88 (106) 96 07/12/17 22:14 21 07/12/17 20:04 99 07/12/17 20:00 97.4 95 19 154/88 (110) 99 07/12/17 16:00 97.6 96 20 148/79 (102) 98 07/12/17 12:00 96.9 78 19 158/92 (114) 98 (Chastity Morgan) -: 07/13/17 0844 07/12/17 0645 Imaging Last Impressions Catheter Placement X-Ray 07/10/17 0000 Signed Impressions: Service Date/Time: Monday, July 10, 2017 14:22 - CONCLUSION: Uncomplicated PermaCath placement as above. Adolfo Stevenson MD Renal Ultrasound 07/09/17 0000 Signed Impressions: Service Date/Time: June 07:31 - CONCLUSION: 1. Mild diffusely increased cortical echogenicity consistent with medical renal disease. 2. No obstructive uropathy. 3. Trace right perinephric fluid. This is a nonspecific finding. 4. Small simple cyst in the superior pole of the right kidney. Ramy Guillaume MD Chest X-Ray 07/08/17 1644 Signed Impressions: Service Date/Time: Saturday, July 08, 2017 17:00 - CONCLUSION: Hypoinflation with no acute cardiopulmonary process. Adolfo Stevenson MD Tubes & Lines: Perma-Cath Medication Review Current Medications Medications (Trade) Dose Ordered Sig/Christine Route Start Time Stop Time Status Last Admin (NS Flush) 2 ml UNSCH PRN IV FLUSH 07/08/17 18:45 (NS Flush) 2 ml BID IV FLUSH 07/08/17 21:00 07/13/17 09:05 (Narcan Inj) 0.4 mg UNSCH PRN IV PUSH 07/08/17 18:45 (Apresoline Inj) 10 mg Q4H PRN IV PUSH 07/08/17 21:00 07/08/17 21:55 (Catapres) 0.1 mg Q6H PRN PO 07/08/17 21:00 07/09/17 04:04 (D50w (Vial) Inj) 50 ml UNSCH PRN IV PUSH 07/08/17 21:15 (Glucagon Inj) 1 mg UNSCH PRN OTHER 07/08/17 21:15 (NovoLOG SUPPLEMENTAL SCALE) 1 ACHS SLIDING SCALE SQ 07/09/17 08:00 07/12/17 17:56 Sodium Chloride 1,000 ml @ 0 mls/hr Q0M PRN OTHER 07/09/17 16:30 (Heparin Inj) 8,000 units UNSCH PRN IV FLUSH 07/09/17 16:30 Sodium Chloride 1,000 ml @ 200 mls/hr Q5H PRN IV 07/09/17 16:30 Sodium Chloride 1,000 ml @ 0 mls/hr Q0M PRN OTHER 07/09/17 16:30 (Mannitol Inj) 12.5 gm UNSCH PRN IV 07/09/17 16:30 Albumin Human 100 ml @ 60 mls/hr UNSCH PRN IV 07/09/17 16:30 (NS Flush) 5 ml UNSCH PRN IV FLUSH 07/09/17 16:30 (Heparin Inj) UNSCH PRN .XX 07/09/17 16:30 07/11/17 12:06 (Gentamicin (Dialysis) Inj) 20 mg UNSCH PRN OTHER 07/09/17 16:30 07/11/17 12:06 (Zofran Inj) 4 mg UNSCH PRN IV PUSH 07/09/17 16:30 (Tylenol) 650 mg UNSCH PRN PO 07/09/17 16:30 (Benadryl) 25 mg UNSCH PRN PO 07/09/17 16:30 (Nitrostat Sl) 0.4 mg UNSCH PRN SL 07/09/17 16:30 (Catapres) 0.1 mg UNSCH PRN PO 07/09/17 16:30 (Gelfoam 12 Mm/7 Mm Top) 1 foam UNSCH PRN TOP 07/09/17 16:30 (Phoslo) 1,334 mg TID PO 07/10/17 09:00 07/13/17 09:04 (NS Flush) UNSCH PRN IV FLUSH 07/10/17 15:30 (Heparin Inj) UNSCH PRN IV FLUSH 07/10/17 15:30 (Epogen Inj) 10,000 units UNSCH PRN IV PUSH 07/10/17 16:30 07/11/17 12:07 (Apresoline) 10 mg Q8HR PO 07/11/17 14:00 07/13/17 05:25 (Cardura) 4 mg DAILY PO 07/14/17 09:00 (Chastity Morgan) Physical Exam General Appearance: No Acute Distress, Comfortable (Chastity Morgan) Neck Neck Exam: Neck Supple, Trachea Midline (Chastity Morgan) Pulmonary Resp Exam: Clear Bilaterally, Breath Sounds Equal (Chastity Morgan) Cardiology CV Exam: Regular, Normal Sinus Rhythm (Chastity Morgan) Integumentary Skin Exam: Clear, Warm (Chastity Morgan) Extremeties Extremities Exam: No Edema (Chastity Morgan) Neurologic Neuro Exam: Awake, Oriented (Chastity Morgan) Psychiatric Psych Exam: Appropriate Responses (Chastity Morgan) Assessment/Plan Problem List: (1) ESRD (end stage renal disease) on dialysis ICD Codes: N18.6 - End stage renal disease; Z99.2 - Dependence on renal dialysis Plan: Continue HD TTS Minimal UF as UOP it good. Appreciate case management help regarding outpatient payor source. Case management at outpatient dialysis center is also aware of the situation. Pt verbally consented for them to call him with information as well. ([facility] [phone]) Avoid nephrotoxic medications including NSAIDs and iodinated contrast dyes. Avoid gadolinium. (2) Uncontrolled diabetes mellitus ICD Codes: E11.65 - Type 2 diabetes mellitus with hyperglycemia Plan: Management as per primary (3) Uncontrolled hypertension ICD Codes: I10 - Essential (primary) hypertension Status: Acute Plan: Primary increased Cardura (4) Anemia of renal disease ICD Codes: D63.1 - Anemia in chronic kidney disease Plan: Continue Epo with HD (5) Hyperphosphatemia ICD Codes: E83.39 - Other disorders of phosphorus metabolism Plan: Continue on PhosLo (6) Secondary hyperparathyroidism (of renal origin) ICD Codes: N25.81 - Secondary hyperparathyroidism of renal origin Plan: PTH elevated, but will within range expected for dialysis patients (150- 500). Continue Ergocalciferol for Vitamin D deficiency (7) Vitamin D deficiency ICD Codes: E55.9 - Vitamin D deficiency, unspecified (Chastity Morgan) Plan Patient clinically improved with initiation of dialysis. Medicare end-stage renal disease application filled in for the director social service. Disposition pending arrangements for outpatient dialysis. No payor source currently available. The exam, history, and the medical decision-making described in the above note were completed with the assistance of the PABe. I reviewed and agree with the findings presented. I attest that I had a [id number] encounter with the patient on the same day, and personally performed and documented my assessment and findings in the medical record. (Andrea Whitmore MD) Chastity Morgan Jul 13, 2017 09:39 Andrea Whitmore MD Jul 13, 2017 16:13
[2017-07-13 09:40] LABS: BICARBONATE 24.6 MEQ/L (21.0-32.0); CALCIUM 9.1 MG/DL (8.5-10.1); CREATININE 9.34 MG/DL (0.60-1.30)
[2017-07-13] MEDS: DOXAZOSIN MESYLATE 4 MG TAB PO SCH (10:21)
--- NOTE | 2017-07-13 16:55 | HHI.PR ---
Subjective Remarks Deferred entry, patient seen earlier at 10:30 AM. The patient denies chest pain, short of breath more nausea, vomiting or abdominal pain. Objective Vitals Vital Signs Date Time Temp Pulse Resp B/P (MAP) Pulse Ox O2 Delivery O2 Flow Rate FiO2 07/13/17 16:00 97.0 86 18 136/83 (100) 98 07/13/17 13:31 96 07/13/17 12:00 97.2 92 18 138/76 (96) 97 07/13/17 08:00 97.2 88 19 158/93 (114) 96 07/13/17 04:00 96.1 96 19 160/96 (117) 97 07/13/17 03:53 103 07/13/17 00:16 100 07/13/17 00:08 96.2 92 19 144/88 (106) 96 07/12/17 22:14 21 07/12/17 20:04 99 07/12/17 20:00 97.4 95 19 154/88 (110) 99 I/O 07/12/17 07/12/17 07/12/17 07/13/17 07/13/17 07/13/17 07:00 15:00 23:00 07:00 15:00 23:00 Intake Total 400 ml 120 ml 960 ml 400 ml Output Total 600 ml 850 ml 600 ml Balance -200 ml 120 ml 110 ml -200 ml Intake Oral 400 ml 120 ml 960 ml 400 ml Output Urine Total 600 ml 850 ml 600 ml Result Diagram: 07/13/17 0844 07/13/17 0844 Imaging Last Impressions Catheter Placement X-Ray 07/10/17 0000 Signed Impressions: Service Date/Time: Monday, July 10, 2017 14:22 - CONCLUSION: Uncomplicated PermaCath placement as above. Adolfo Stevenson MD Renal Ultrasound 07/09/17 0000 Signed Impressions: Service Date/Time: June 07:31 - CONCLUSION: 1. Mild diffusely increased cortical echogenicity consistent with medical renal disease. 2. No obstructive uropathy. 3. Trace right perinephric fluid. This is a nonspecific finding. 4. Small simple cyst in the superior pole of the right kidney. Ramy Guillaume MD Chest X-Ray 07/08/17 0234 Signed Impressions: Service Date/Time: Saturday, July 08, 2017 17:00 - CONCLUSION: Hypoinflation with no acute cardiopulmonary process. Adolfo Stevenson MD Objective Remarks AAOX3 Facial edema with swollen eyelids Clear lungs BL S1S2 RRR, no MRG Abdomen soft, nt, nd no edema in lower extremities Procedures sp Permacath placement. Medications and IVs Current Medications Medications (Trade) Dose Ordered Sig/Christine Route Start Time Stop Time Status Last Admin (NS Flush) 2 ml UNSCH PRN IV FLUSH 07/08/17 18:45 (NS Flush) 2 ml BID IV FLUSH 07/08/17 21:00 07/13/17 09:05 (Narcan Inj) 0.4 mg UNSCH PRN IV PUSH 07/08/17 18:45 (Apresoline Inj) 10 mg Q4H PRN IV PUSH 07/08/17 21:00 07/08/17 21:55 (Catapres) 0.1 mg Q6H PRN PO 07/08/17 21:00 07/09/17 04:04 (D50w (Vial) Inj) 50 ml UNSCH PRN IV PUSH 07/08/17 21:15 (Glucagon Inj) 1 mg UNSCH PRN OTHER 07/08/17 21:15 (NovoLOG SUPPLEMENTAL SCALE) 1 ACHS SLIDING SCALE SQ 07/09/17 08:00 07/13/17 12:39 Sodium Chloride 1,000 ml @ 0 mls/hr Q0M PRN OTHER 07/09/17 16:30 (Heparin Inj) 8,000 units UNSCH PRN IV FLUSH 07/09/17 16:30 Sodium Chloride 1,000 ml @ 200 mls/hr Q5H PRN IV 07/09/17 16:30 Sodium Chloride 1,000 ml @ 0 mls/hr Q0M PRN OTHER 07/09/17 16:30 (Mannitol Inj) 12.5 gm UNSCH PRN IV 07/09/17 16:30 Albumin Human 100 ml @ 60 mls/hr UNSCH PRN IV 07/09/17 16:30 (NS Flush) 5 ml UNSCH PRN IV FLUSH 07/09/17 16:30 (Heparin Inj) UNSCH PRN .XX 07/09/17 16:30 07/11/17 12:06 (Gentamicin (Dialysis) Inj) 20 mg UNSCH PRN OTHER 07/09/17 16:30 07/11/17 12:06 (Zofran Inj) 4 mg UNSCH PRN IV PUSH 07/09/17 16:30 (Tylenol) 650 mg UNSCH PRN PO 07/09/17 16:30 (Benadryl) 25 mg UNSCH PRN PO 07/09/17 16:30 (Nitrostat Sl) 0.4 mg UNSCH PRN SL 07/09/17 16:30 (Catapres) 0.1 mg UNSCH PRN PO 07/09/17 16:30 (Gelfoam 12 Mm/7 Mm Top) 1 foam UNSCH PRN TOP 07/09/17 16:30 (Phoslo) 1,334 mg TID PO 07/10/17 09:00 07/13/17 12:39 (NS Flush) UNSCH PRN IV FLUSH 07/10/17 15:30 (Heparin Inj) UNSCH PRN IV FLUSH 07/10/17 15:30 (Epogen Inj) 10,000 units UNSCH PRN IV PUSH 07/10/17 16:30 07/11/17 12:07 (Apresoline) 10 mg Q8HR PO 07/11/17 14:00 07/13/17 13:30 (Cardura) 4 mg DAILY PO 07/13/17 10:15 07/13/17 10:21 Line: Central Venous Catheter Side: Right A/P Problem List: (1) Uncontrolled hypertension ICD Code: I10 - Essential (primary) hypertension Status: Acute (2) FERNANDEZ (acute kidney injury) ICD Code: N17.9 - Acute kidney failure, unspecified Status: Acute (3) CKD (chronic kidney disease) ICD Code: N18.9 - Chronic kidney disease, unspecified Status: Chronic (4) Metabolic acidosis ICD Code: E87.2 - Acidosis Status: Resolved Assessment and Plan 1. End-stage renal disease. Patient's creatinine reportedly 7 on 06/29/17, 9.61 on admission K 4.7 Nephrology consulted - Recommendations pending. 07/09 Change IV fluids do NS + sodium bicarbonate due to acidosis. Renal ultrasound consistent with medical renal disease. No obstructive uropathy reported. Small simple cyst in the superior pole of the right kidney. 07/10 continue normal saline and sodium bicarbonate. The patient status post permacath placement and hemodialysis. Management as per nephrology. 07/11 sp second session of hemodialysis. Continue normal saline and sodium bicarbonate since acidosis has resolved. Continue renal diet. I will order a dietitian consultation for renal diabetic diet instruction. 07/13 Educator consulted. Appreciate recommendations. Hemodialysis as per nephrology. Patient with end-stage renal disease, likely to need permanent dialysis. 2. Hypertensive crisis Patient home amlodipine was continued. Patient also place on hydralazine and clonidine as needed. Blood pressure monitored. Blood pressure still elevated on . Lisinopril was discontinued given kidney issues and the patient is on hydralazine and Cardura. 07/13 blood pressure still elevated in the 150 systolic, today. I will increase the dose of Cardura to 4 mg by mouth daily. Continue hydralazine and clonidine as needed. 3. Type 2 diabetes mellitus Holding home oral antihyperglycemic SSI Monitor blood glucose 07/10 Blood sugars stable. Check hemoglobin A1c. 07/11 hemoglobin A1c pending. 07/12 hemoglobin A1c 6.1, the diabetes is well controlled. 4. Metabolic acidosis 07/12 Status post hypotonic saline with. Metabolic acidosis secondary to acute kidney injury, bicarbonate 20.2 on admission, trending up. Continue to monitor BMP. FEN Renal diet Electrolytes: monitor and replete prn Discharge Planning Discharge pending nephrology clearance and outpatient dialysis arranged. Ayush Ryan MD Jul 13, 2017 16:55
[2017-07-14] VITALS: BP 140/82; PULSE 88; RESP 18; TEMP 97.7; O2SAT 98
[2017-07-14 04:00] VITALS: BP 145/81; PULSE 86; RESP 18; TEMP 97.1; O2SAT 99
[2017-07-14] MEDS: hydrALAZINE HCL 10 MG TAB PO SCH ×2 (05:35→13:04)
[2017-07-14 07:55] LABS: ALBUMIN 2.5 GM/DL (3.4-5.0); BICARBONATE 20.6 MEQ/L (21.0-32.0); CREATININE 9.86 MG/DL (0.60-1.30); PHOSPHORUS 5.8 MG/DL (2.5-4.9)
[2017-07-14 08:00] VITALS: BP 173/89; PULSE 76; PULSE 88; RESP 19; TEMP 98.4; O2SAT 97
[2017-07-14] MEDS: INSULIN ASPART SUPPLEMENTAL SCALE SQ SCH ×2 (08:00→12:00)
[2017-07-14] MEDS: CALCIUM ACETATE 667 MG CAP PO SCH ×2 (09:00→13:04)
[2017-07-14] MEDS: SODIUM CHLORIDE 0.9% FLUSH 10 ML FLUSH IV FLUSH SCH (09:00)
[2017-07-14] MEDS: DOXAZOSIN MESYLATE 4 MG TAB PO SCH (09:00)
[2017-07-14] MEDS: EPOETIN ALFA 10,000 UNITS/ML VIAL IV PUSH PRN (09:34)
[2017-07-14] MEDS: HEPARIN SODIUM - IV 10,000 UNITS/10 ML VIAL PRN (09:34)
--- NOTE | 2017-07-14 10:41 | HHI.NPPN ---
Subjective History of Present Illness The patient is a 36 yo AA male who presented to this facility 07/08 with complaints of fatigue & malaise. He saw his PCP last week for routine care and was advised that his renal functions were severely impaired with SCr at 7.95 and eGFR of 9. He unfortunately has been noncompliant with his medical care on the past and last labs prior to this were in 2014 showing a SCr of 2.05 and eGFR 46. He is a longstanding uncontrolled hypertensive and diabetic. He has been prescribed Lisinopril & Metformin in the past, but does not always take it. He currently is unemployed and has no health insurance which he states is why he has not been following up regularly with his primary. Admitting SCr at 9.61 with eGFR of 7. Worsened at time of consult to 9.73. Denies any NSAID use at home. No recent illness. No antibiotics. No urinary issues. Denies NVD. Besides progressive fatigue that his mother and sister who are present endorse, he denies any other symptoms. Interval History Pt seen during HD. Potentially OK'd for transitional program Review of Systems General Constitutional: Fatigue Objective Data Data Vital Signs Date Time Temp Pulse Resp B/P (MAP) Pulse Ox O2 Delivery O2 Flow Rate FiO2 07/14/17 08:00 76 07/14/17 08:00 98.4 88 19 173/89 (117) 97 07/14/17 04:00 97.1 86 18 145/81 (102) 99 07/14/17 00:00 97.7 88 18 140/82 (101) 98 07/13/17 23:53 72 07/13/17 20:00 97.1 86 18 163/81 (108) 98 07/13/17 19:49 95 07/13/17 18:02 98 21 07/13/17 16:00 97.0 86 18 136/83 (100) 98 07/13/17 13:31 96 07/13/17 12:00 97.2 92 18 138/76 (96) 97 -: 07/13/17 0844 07/14/17 0550 Imaging Last Impressions Catheter Placement X-Ray 07/10/17 0000 Signed Impressions: Service Date/Time: Monday, July 10, 2017 14:22 - CONCLUSION: Uncomplicated PermaCath placement as above. Adolfo Stevenson MD Renal Ultrasound 07/09/17 0000 Signed Impressions: Service Date/Time: June 07:31 - CONCLUSION: 1. Mild diffusely increased cortical echogenicity consistent with medical renal disease. 2. No obstructive uropathy. 3. Trace right perinephric fluid. This is a nonspecific finding. 4. Small simple cyst in the superior pole of the right kidney. Ramy Guillaume MD Chest X-Ray 07/08/17 1644 Signed Impressions: Service Date/Time: Saturday, July 08, 2017 17:00 - CONCLUSION: Hypoinflation with no acute cardiopulmonary process. Adolfo Stevenson MD Tubes & Lines: Perma-Cath Medication Review Current Medications Medications (Trade) Dose Ordered Sig/Christine Route Start Time Stop Time Status Last Admin (NS Flush) 2 ml UNSCH PRN IV FLUSH 07/08/17 18:45 (NS Flush) 2 ml BID IV FLUSH 07/08/17 21:00 07/13/17 20:50 (Narcan Inj) 0.4 mg UNSCH PRN IV PUSH 07/08/17 18:45 (Apresoline Inj) 10 mg Q4H PRN IV PUSH 07/08/17 21:00 07/08/17 21:55 (Catapres) 0.1 mg Q6H PRN PO 07/08/17 21:00 07/09/17 04:04 (D50w (Vial) Inj) 50 ml UNSCH PRN IV PUSH 07/08/17 21:15 (Glucagon Inj) 1 mg UNSCH PRN OTHER 07/08/17 21:15 (NovoLOG SUPPLEMENTAL SCALE) 1 ACHS SLIDING SCALE SQ 07/09/17 08:00 07/13/17 21:17 Sodium Chloride 1,000 ml @ 0 mls/hr Q0M PRN OTHER 07/09/17 16:30 (Heparin Inj) 8,000 units UNSCH PRN IV FLUSH 07/09/17 16:30 Sodium Chloride 1,000 ml @ 200 mls/hr Q5H PRN IV 07/09/17 16:30 Sodium Chloride 1,000 ml @ 0 mls/hr Q0M PRN OTHER 07/09/17 16:30 (Mannitol Inj) 12.5 gm UNSCH PRN IV 07/09/17 16:30 Albumin Human 100 ml @ 60 mls/hr UNSCH PRN IV 07/09/17 16:30 (NS Flush) 5 ml UNSCH PRN IV FLUSH 07/09/17 16:30 (Heparin Inj) UNSCH PRN .XX 07/09/17 16:30 07/14/17 09:34 (Gentamicin Inj) 20 mg UNSCH PRN OTHER 07/09/17 16:30 07/11/17 12:06 (Zofran Inj) 4 mg UNSCH PRN IV PUSH 07/09/17 16:30 (Tylenol) 650 mg UNSCH PRN PO 07/09/17 16:30 07/13/17 21:23 (Benadryl) 25 mg UNSCH PRN PO 07/09/17 16:30 (Nitrostat Sl) 0.4 mg UNSCH PRN SL 07/09/17 16:30 (Catapres) 0.1 mg UNSCH PRN PO 07/09/17 16:30 (Gelfoam 12 Mm/7 Mm Top) 1 foam UNSCH PRN TOP 07/09/17 16:30 (Phoslo) 1,334 mg TID PO 07/10/17 09:00 07/13/17 17:03 (NS Flush) UNSCH PRN IV FLUSH 07/10/17 15:30 (Heparin Inj) UNSCH PRN IV FLUSH 07/10/17 15:30 (Epogen Inj) 10,000 units UNSCH PRN IV PUSH 07/10/17 16:30 07/14/17 09:34 (Apresoline) 10 mg Q8HR PO 07/11/17 14:00 07/14/17 05:35 (Cardura) 4 mg DAILY PO 07/13/17 10:15 07/13/17 10:21 Physical Exam General Appearance: No Acute Distress, Comfortable Neck Neck Exam: Neck Supple, Trachea Midline Pulmonary Resp Exam: Clear Bilaterally, Breath Sounds Equal Cardiology CV Exam: Regular, Normal Sinus Rhythm Integumentary Skin Exam: Clear, Warm Extremeties Extremities Exam: No Edema Neurologic Neuro Exam: Awake, Oriented Psychiatric Psych Exam: Appropriate Responses Assessment/Plan Problem List: (1) ESRD (end stage renal disease) on dialysis ICD Codes: N18.6 - End stage renal disease; Z99.2 - Dependence on renal dialysis Plan: Continue HD TTS Minimal UF as UOP it good. Appreciate case management help regarding outpatient payor source. Case management at outpatient dialysis center is also aware of the situation. Pt verbally consented for them to call him with information as well. ([facility] [phone]) Transitional HD forms filled out by MD Avoid nephrotoxic medications including NSAIDs and iodinated contrast dyes. Avoid gadolinium. (2) Uncontrolled diabetes mellitus ICD Codes: E11.65 - Type 2 diabetes mellitus with hyperglycemia Plan: Management as per primary (3) Uncontrolled hypertension ICD Codes: I10 - Essential (primary) hypertension Status: Acute Plan: Primary increased Cardura (4) Anemia of renal disease ICD Codes: D63.1 - Anemia in chronic kidney disease Plan: Continue Epo with HD (5) Hyperphosphatemia ICD Codes: E83.39 - Other disorders of phosphorus metabolism Plan: Continue on PhosLo (6) Secondary hyperparathyroidism (of renal origin) ICD Codes: N25.81 - Secondary hyperparathyroidism of renal origin Plan: PTH elevated, but will within range expected for dialysis patients (150- 500). Continue Ergocalciferol for Vitamin D deficiency (7) Vitamin D deficiency ICD Codes: E55.9 - Vitamin D deficiency, unspecified Chastity Morgan Jul 14, 2017 10:41
[2017-07-14 12:55] VITALS: BP 135/73
[2017-07-14 13:15] VITALS: BP 142/93; PULSE 97; RESP 18; TEMP 97.2; O2SAT 98
[2017-07-14] MEDS ORDERED: HYDR-3798 PO (14:55)
[2017-07-14] MEDS ORDERED: CARD4TAB2 PO (14:55)
--- NOTE | 2017-07-14 14:55 | HHI.DCPOC ---
Discharge Care Plan Diagnosis: (1) Uncontrolled hypertension (2) FERNANDEZ (acute kidney injury) (3) CKD (chronic kidney disease) (4) Metabolic acidosis (5) Anemia of renal disease (6) ESRD (end stage renal disease) on dialysis (7) Vitamin D deficiency (8) Secondary hyperparathyroidism (of renal origin) (9) Hyperphosphatemia (10) Uncontrolled diabetes mellitus (11) Renal failure (12) Renal insufficiency (13) Acidosis Goals to Promote Your Health * To prevent worsening of your condition and complications * To maintain your health at the optimal level Directions to Meet Your Goals Take your medications as prescribed Follow your dietary instruction Follow activity as directed Keep your appointments as scheduled Take your immunizations and boosters as scheduled If your symptoms worsen call your PCP, if no PCP go to Urgent Care Center or Emergency Room Smoking is Dangerous to Your Health. Avoid second hand smoke Call the 24-hour hour crisis hotline for domestic abuse at Ayush Ryan MD Jul 14, 2017 14:55
[2017-07-14] MEDS ORDERED: CALC667C PO (15:01)
--- NOTE | 2017-07-14 15:03 | HHI.DS ---
Discharge Summary Admission Date Jul 08, 2017 at 18:56 Discharge Date: Jul 14, 2017 Admitting Diagnosis acidosis, renal insufficiency (1) Uncontrolled hypertension ICD Code: I10 - Essential (primary) hypertension Status: Acute (2) FERNANDEZ (acute kidney injury) ICD Code: N17.9 - Acute kidney failure, unspecified Status: Acute (3) CKD (chronic kidney disease) ICD Code: N18.9 - Chronic kidney disease, unspecified Status: Chronic (4) Metabolic acidosis ICD Code: E87.2 - Acidosis Status: Resolved Procedures sp Permacath placement. Brief History - From Admission 36-year-old male with past medical history significant for diabetes mellitus and hypertension presents to the emergency department for evaluation of a 1 day history of fatigue. The patient reports that he has been feeling more tired and "just not well" today. The patient had labs drawn by his PCP on 06/29/17 which showed a creatinine of 7. The patient was contacted by his PCP to go to nephrology. The patient was unable to be seen by a patient safety coordinator secondary to insurance issues. Patient's creatinine today 9.61. He denies any fever/chills , chest pain, shortness of breath, nausea/vomiting/diarrhea. Denies headache. Vital signs: Temperature 97.5, pulse 90, respirations 14, BP 207/125, pulse ox 100% on room air. CBC/BMP: 07/13/17 0844 07/14/17 0550 Significant Findings Laboratory Tests Test 07/12/17 06:45 07/13/17 04:30 07/13/17 08:44 07/14/17 05:50 Red Blood Count 3.19 MIL/MM3 (4.50-5.90) 3.24 MIL/MM3 (4.50-5.90) Hemoglobin 9.2 GM/DL (13.0-17.0) 9.5 GM/DL (13.0-17.0) Hematocrit 27.9 % (39.0-51.0) 28.6 % (39.0-51.0) Blood Urea Nitrogen 49 MG/DL (7-18) 56 MG/DL (7-18) 62 MG/DL (7-18) Creatinine 8.22 MG/DL (0.60-1.30) 9.34 MG/DL (0.60-1.30) 9.86 MG/DL (0.60-1.30) Albumin 2.4 GM/DL (3.4-5.0) 2.5 GM/DL (3.4-5.0) Estimat Glomerular Filtration Rate 9 ML/MIN (>89) 8 ML/MIN (>89) 7 ML/MIN (>89) Urine Total Protein 24 Hour 6550 MG/24HR (0-150) Phosphorus Level 5.8 MG/DL (2.5-4.9) Potassium Level 5.4 MEQ/L (3.5-5.1) Carbon Dioxide Level 20.6 MEQ/L (21.0-32.0) Imaging Last Impressions Catheter Placement X-Ray 07/10/17 0000 Signed Impressions: Service Date/Time: Monday, July 10, 2017 14:22 - CONCLUSION: Uncomplicated PermaCath placement as above. Adolfo Stevenson MD Renal Ultrasound 07/09/17 0000 Signed Impressions: Service Date/Time: June 07:31 - CONCLUSION: 1. Mild diffusely increased cortical echogenicity consistent with medical renal disease. 2. No obstructive uropathy. 3. Trace right perinephric fluid. This is a nonspecific finding. 4. Small simple cyst in the superior pole of the right kidney. Ramy Guillaume MD Chest X-Ray 07/08/17 1644 Signed Impressions: Service Date/Time: Saturday, July 08, 2017 17:00 - CONCLUSION: Hypoinflation with no acute cardiopulmonary process. Adolfo Stevenson MD PE at Discharge AAOX3 Facial edema with swollen eyelids Clear lungs BL S1S2 RRR, no MRG Abdomen soft, nt, nd no edema in lower extremities Pt Condition on Discharge: Stable Discharge Disposition: Discharge Home Discharge Time: <= 30 minutes Discharge Instructions DIET: Follow Instructions for: Diabetic Diet, Renal Failure Diet Activities you can perform: Regular-No Restrictions Activities to Avoid: Contact Sports, Strenuous Activity Follow up Referrals: Nephrology - 2 Weeks PCP Follow-up - 2 Weeks New Medications: Calcium Acetate (Phosphate Bin (Calcium Acetate) 667 Mg Cap 1334 MG PO TID for high phosphorus, #90 CAP Doxazosin (Cardura) 4 Mg Tab 4 MG PO DAILY for Blood Pressure Management, #30 TAB Hydralazine HCl (Hydralazine HCl) 10 Mg Tablet 10 MG PO Q8HR for Blood Pressure Management, #90 TAB Continued Medications: Metformin (Metformin) 500 Mg Tab 500 MG PO BIDPC for Blood Sugar Management, #60 TAB 0 Refills Discontinued Medications: Lisinopril (Lisinopril) 10 Mg Tab 10 MG PO DAILY, #30 TAB 0 Refills Ayush Ryan MD Jul 14, 2017 15:02
[2017-07-15 03:49] LABS: KAPPA/LAMBDA FREE 1.68 (0.26-1.65)
== END 2017-07-14 16:02 | disposition home or self-care (01) | DRG 683 ==
LOC: NEPE 15:58 → NEDA 18:56 → NEDH 07-09 00:50 → N07A 07-09 12:45
PROVIDERS: ADMIT Hospitalist; ATTEND Hospitalist
PROC: 05HM33Z Insertion of Infusion Device into Right Internal Jugular Vein, Percutaneous Approach (ICD-10-PCS; principal; 2017-07-10)
PROC: 5A1D70Z Performance of Urinary Filtration, Intermittent, Less than 6 Hours Per Day (ICD-10-PCS; 2017-07-10)
DX: N17.9 Acute kidney failure, unspecified (principal); I12.0 Hypertensive chronic kidney disease with stage 5 chronic kidney disease or end stage renal disease; E87.2 Acidosis; I16.1 Hypertensive emergency; F17.290 Nicotine dependence, other tobacco product, uncomplicated; E11.22 Type 2 diabetes mellitus with diabetic chronic kidney disease; E11.65 Type 2 diabetes mellitus with hyperglycemia; E87.8 Other disorders of electrolyte and fluid balance, not elsewhere classified; D63.1 Anemia in chronic kidney disease; E55.9 Vitamin D deficiency, unspecified; N25.81 Secondary hyperparathyroidism of renal origin; N18.6 End stage renal disease; N25.0 Renal osteodystrophy; N28.1 Cyst of kidney, acquired; Z91.19 Patient's noncompliance with other medical treatment and regimen; Z79.84 Long term (current) use of oral hypoglycemic drugs; Z99.2 Dependence on renal dialysis
CPT/HCPCS: 36558; 71045; 76775; 76937; 77001; 80048; 80053; 80069; 81001; 82010; 82306; 82728; 82784; 82800; 82948; 83036; 83540; 83550; 83690; 83735; 83883; 83970; 84100; 84157; 85025; 85027; 85610; 85730; 86021; 86160; 86334; 86803; 87340; 87804; 90935; 93005; 96374; 96375; 99152; 99153; C1750; C1769; C1887; J0360; J0690; J1580; J1644; J1815; J2250; J3010; J3370; J7120; Q4081

== ENCOUNTER 2017-07-25 16:08 | Emergency (ER) | payer OTHER ==
[~2017-07-25] VITALS: Ht 182.9 cm; Wt 109.0 kg
[~2017-07-25 16:08] MED LIST changes: -BENZ100 PO; -BLOOD PRESSURE MED; +CALC667C PO; +CARD4TAB2 PO; -DIABETIC MED; +HYDR-3798 PO; +METF500T PO; -ZITH250T PO
[2017-07-25 16:13] VITALS: BP 152/91; PULSE 96; RESP 12; TEMP 97.4; O2SAT 96
[2017-07-25] MEDS ORDERED: RESP: ALBUTEROL 2.5 MG/IPRATROPIUM 0.5 MG NEB (SCH) NEB ONE (17:45)
[2017-07-25] MEDS ORDERED: LORazepam 1 MG TAB PO ONE (18:00)
--- NOTE | 2017-07-25 18:00 | PD ---
HPI Chief Complaint: Neuro Symptoms/ Deficits Time Seen by Provider: 17:32 Travel History International Travel<30 days: No Contact w/Intl Traveler<30days: No Traveled to known affect area: No History of Present Illness HPI 36-year-old man presents to the emergency department complaining of twitching symptoms. He states that he has had intermittent twitching after his dialysis. He was recently diagnosed of renal failure and just started having dialysis. He gets dialyzed to the transitional dialysis unit now. He states he is to get twitching this for a little bit after the dialysis, he got dialyzed yesterday and has been persistent since. No definite seizures. No other complaints. History Past Medical History Narrative Medical End-stage renal disease, Thursday dialysis Diabetes Hypertension Past Surgical History Surgical History: No Previous Surgery Social History Alcohol Use: No Tobacco Use: No (quit cigars) Allergies-Medications (Allergen,Severity, Reaction): Coded Allergies: No Known Allergies (Unverified Allergy, Unknown, 07/08/17) Reported Meds & Prescriptions Reported Meds & Active Scripts Active Calcium Acetate (Calcium Acetate (Phosphate Bin) 667 Mg Cap 1,334 Mg PO TID Cardura (Doxazosin Mesylate) 4 Mg Tab 4 Mg PO DAILY Hydralazine HCl 10 Mg Tablet 10 Mg PO Q8HR Review of Systems Except as stated in HPI: all other systems reviewed are Neg Physical Exam Narrative GENERAL: Well-appearing 36-year-old man, no acute distress. Some intermittent twitching, less pronounced with intention. Involves all 4 extremities in the shoulders. SKIN: Focused skin assessment warm/dry. HEAD: Atraumatic. Normocephalic. EYES: Pupils equal and round. No scleral icterus. No injection or drainage. ENT: No nasal bleeding or discharge. Mucous membranes pink and moist. NECK: Trachea midline. No JVD. CARDIOVASCULAR: Regular rate and rhythm. No murmur appreciated. Dialysis catheter right chest. RESPIRATORY: No accessory muscle use. Clear to auscultation. Breath sounds equal bilaterally. GASTROINTESTINAL: Abdomen soft, non-tender, nondistended. Hepatic and splenic margins not palpable. MUSCULOSKELETAL: No obvious deformities. No clubbing. No cyanosis. No edema. NEUROLOGICAL: Awake and alert. No obvious cranial nerve deficits. Motor grossly within normal limits. Normal speech. PSYCHIATRIC: Appropriate mood and affect; insight and judgment normal. Data Data Last Documented VS Vital Signs Date Time Temp Pulse Resp B/P (MAP) Pulse Ox O2 Delivery O2 Flow Rate FiO2 07/25/17 16:13 97.4 96 12 152/91 (111) 96 Room Air Orders Orders Albuterol-Ipratropium Neb (Duoneb Neb) (07/25/17 17:45) Lorazepam (Ativan) (07/25/17 18:00) Basic Metabolic Panel (Bmp) (07/25/17 17:48) Magnesium (Mg) (07/25/17 17:48) Labs Laboratory Tests Test 07/25/17 17:50 Blood Urea Nitrogen 49 MG/DL Creatinine 12.45 MG/DL Random Glucose 141 MG/DL Calcium Level 9.8 MG/DL Magnesium Level 2.3 MG/DL Sodium Level 134 MEQ/L Potassium Level 4.2 MEQ/L Chloride Level 91 MEQ/L Carbon Dioxide Level 32.8 MEQ/L Anion Gap 10 MEQ/L Estimat Glomerular Filtration Rate 6 ML/MIN MDM Medical Decision Making Medical Screen Exam Complete: Yes Emergency Medical Condition: Yes Interpretation(s) BMP: Creatinine 12.45, BUN 49 Magnesium normal Electrolytes otherwise unremarkable Differential Diagnosis Anxiety, electrolyte abnormality, psychogenic twitch, other Narrative Course Medical decision making 28-year-old man with intermittent twitching throughout his entire body, seems to be psychogenic. Will check labs, treat with benzos, outpatient follow-up. Diagnosis Primary Impression: Tremor Additional Instructions: Use Ativan sparingly as needed for tic or tremor. Follow-up with her primary doctor in the next 2-4 days. Return to the emergency department for any new or worsening symptoms. Med/Other Pt SpecificInfo: No Change to Meds Scripts Lorazepam (Lorazepam) 1 Mg Tab 1 MG PO Q8H Y for ANXIETY, #10 TAB 0 Refills Prov: Marino Charles MD 07/25/17 Disposition: 01 DISCHARGE HOME Condition: Stable Marino Charles MD Jul 25, 2017 18:00
[2017-07-25 18:50] LABS: BICARBONATE 32.8 MEQ/L (21.0-32.0); CALCIUM 9.8 MG/DL (8.5-10.1); MAGNESIUM 2.3 MG/DL (1.5-2.5)
[2017-07-25 18:57] LABS: CREATININE 12.45 MG/DL (0.60-1.30)
[2017-07-25] MEDS ORDERED: LORA1TAB12 PO (19:06)
[2017-07-25 19:58] VITALS: BP 132/88; PULSE 97; RESP 18; O2SAT 100
== END 2017-07-25 19:55 | disposition home or self-care (01) ==
LOC: NEPC 16:08
DX: R25.1 Tremor, unspecified (principal); I12.0 Hypertensive chronic kidney disease with stage 5 chronic kidney disease or end stage renal disease; E11.22 Type 2 diabetes mellitus with diabetic chronic kidney disease; N18.6 End stage renal disease; Z99.2 Dependence on renal dialysis
CPT/HCPCS: 80048; 83735; 99283

== ENCOUNTER 2017-09-18 12:21 | Emergency (ER) | payer MEDICAID, OTHER ==
[~2017-09-18] VITALS: Ht 182.9 cm; Wt 110.0 kg
[~2017-09-18 12:21] MED LIST changes: +LORA1TAB12 PO; -METF500T PO
[2017-09-18 12:28] VITALS: BP 115/60; PULSE 100; RESP 16; TEMP 97.7; O2SAT 99
[2017-09-18] MEDS ORDERED: METF500T PO (12:33)
--- NOTE | 2017-09-18 12:40 | PD ---
HPI Chief Complaint: Syncope/Near-Syncope Time Seen by Provider: 12:34 Travel History International Travel<30 days: No Contact w/Intl Traveler<30days: No Traveled to known affect area: No History of Present Illness HPI 36-year-old male presents to the emergency department from the dialysis center. He completed dialysis and stood up and became lightheaded, dizzy, diaphoretic. He was lowered to the ground. Patient says he did not lose consciousness. He was given some juice and his blood sugar was checked which was 140. They were unable to obtain a blood pressure at that time. Patient denies chest pain, shortness of breath, abdominal pain, vomiting. Denies lightheadedness or dizziness at this time. Denies recent illness. Says he was 6 pounds over and dialysis took 5 pounds off. Primary care provider is Dr. Curt Marques. Entertainment Manager is Dr. Whitmore. No known allergies. History of diabetes mellitus, hypertension, kidney failure, dialysis. Has no other medical complaints. No other modifying factors or associated signs and symptoms. PFSH Past Medical History Cancer: No Cardiovascular Problems: Yes (HTN) Diabetes: Yes Patient Takes Glucophage: Yes Diminished Hearing: No Genitourinary: Yes Hypertension: Yes Musculoskeletal: No Neurologic: No Psychiatric: No Reproductive: No Respiratory: No Renal Failure: Yes Tetanus Vaccination: Unknown Influenza Vaccination: No Past Surgical History Surgical History: No Previous Surgery Other Surgery: No Social History Alcohol Use: No Tobacco Use: Yes (06/18 PPD) Substance Use: No Allergies-Medications (Allergen,Severity, Reaction): Coded Allergies: No Known Allergies (Unverified Allergy, Unknown, 09/18/17) Reported Meds & Prescriptions Reported Meds & Active Scripts Active Lorazepam 1 Mg Tab 1 Mg PO Q8H PRN Calcium Acetate (Calcium Acetate (Phosphate Bin) 667 Mg Cap 1,334 Mg PO TID Cardura (Doxazosin Mesylate) 4 Mg Tab 4 Mg PO DAILY Hydralazine HCl 10 Mg Tablet 10 Mg PO Q8HR Reported Metformin (Metformin HCl) 500 Mg Tab 500 Mg PO BIDPC Review of Systems Except as stated in HPI: all other systems reviewed are Neg Physical Exam Narrative GENERAL: Well-nourished, well-developed black male patient, in no acute distress SKIN: Pale. Warm and dry. HEAD: Atraumatic. Normocephalic. EYES: Pupils equal and round. No scleral icterus. No injection or drainage. ENT: Mucosa pink and moist. Airway patent. NECK: Trachea midline. CARDIOVASCULAR: Tachycardic rate and rhythm in 120-130's. No murmur appreciated. RESPIRATORY: No accessory muscle use. Breaths sounds clear and equal bilaterally. GASTROINTESTINAL: Rounded. MUSCULOSKELETAL: No obvious deformities. No clubbing. No cyanosis. No edema. NEUROLOGICAL: Awake and alert. Oriented 3. No obvious cranial nerve deficits. Motor grossly within normal limits. Normal speech. PSYCHIATRIC: Appropriate mood and affect; insight and judgment normal. Data Data Last Documented VS Vital Signs Date Time Temp Pulse Resp B/P (MAP) Pulse Ox O2 Delivery O2 Flow Rate FiO2 09/18/17 14:55 09/18/17 14:54 100 16 100 Room Air 09/18/17 12:28 97.7 Orders Orders Electrocardiogram (09/18/17 12:40) Basic Metabolic Panel (Bmp) (09/18/17 12:40) Complete Blood Count With Diff (09/18/17 12:40) Blood Glucose (09/18/17 12:40) Iv Access Insert/Monitor (09/18/17 12:40) Orthostatic Vital Signs (09/18/17 12:40) Sodium Chlorid 0.9% 500 Ml Inj (Ns 500 M (09/18/17 13:00) Ed Discharge Order (09/18/17 14:03) Labs Laboratory Tests Test 09/18/17 13:00 White Blood Count 8.8 TH/MM3 Red Blood Count 3.58 MIL/MM3 Hemoglobin 10.3 GM/DL Hematocrit 31.8 % Mean Corpuscular Volume 88.9 FL Mean Corpuscular Hemoglobin 28.8 PG Mean Corpuscular Hemoglobin Concent 32.4 % Red Cell Distribution Width 15.6 % Platelet Count 249 TH/MM3 Mean Platelet Volume 8.1 FL Neutrophils (%) (Auto) 64.5 % Lymphocytes (%) (Auto) 21.4 % Monocytes (%) (Auto) 11.6 % Eosinophils (%) (Auto) 2.1 % Basophils (%) (Auto) 0.4 % Neutrophils # (Auto) 5.7 TH/MM3 Lymphocytes # (Auto) 1.9 TH/MM3 Monocytes # (Auto) 1.0 TH/MM3 Eosinophils # (Auto) 0.2 TH/MM3 Basophils # (Auto) 0.0 TH/MM3 CBC Comment DIFF FINAL Differential Comment Blood Urea Nitrogen 34 MG/DL Creatinine 8.70 MG/DL Random Glucose 194 MG/DL Calcium Level 9.3 MG/DL Sodium Level 135 MEQ/L Potassium Level 3.9 MEQ/L Chloride Level 97 MEQ/L Carbon Dioxide Level 27.1 MEQ/L Anion Gap 11 MEQ/L Estimat Glomerular Filtration Rate 8 ML/MIN MDM Medical Decision Making Medical Screen Exam Complete: Yes Emergency Medical Condition: Yes Medical Record Reviewed: Yes Differential Diagnosis Anemia, electrolyte imbalance, arrhythmia, hypotension, hypoglycemia, near syncope Narrative Course 36-year-old dialysis patient with near syncopal episode after completing dialysis today. CBC, BMP, EKG, orthostatic vital signs ordered. I discussed the patient with Dr. Charles and he recommended 500 mL normal saline bolus. 1400: EKG with normal sinus rhythm. Blood pressure recheck 110/66. Patient continues to deny lightheadedness or dizziness. Patient ambulated well and without complaint of feeling dizzy or lightheaded. Patient feels comfortable being discharged home. Instructed patient to follow up with primary care provider. Patient verbalizes understanding and agreement with treatment plan. Patient is medically cleared and stable for discharge. Discussed reasons to return to the emergency department. Patient agrees with treatment plan. The patients vital signs are stable and the patient is stable for outpatient follow- up and treatment. Patient discharged home, stable and in no acute distress. Diagnosis Primary Impression: Near syncope Referrals: Entertainment Manager Primary Care Physician Patient Instructions: General Instructions, Hypotension (ED), Near Syncope (ED) Additional Instructions: Continue dialysis as scheduled Follow-up with wash driller Follow-up with primary care provider Return to the emergency department immediately with worsening of symptoms Med/Other Pt SpecificInfo: No Change to Meds, No Meds Exist/No RX given Disposition: DISCHARGE HOME Condition: Stable Xiomara Han Sep 18, 2017 12:40
[2017-09-18] MEDS ORDERED: SODIUM CHLORID 0.9% 500 ML INJ 500 ML IV ONE (13:00)
[2017-09-18 13:18] LABS: AUTOMATED NEUTROPHIL # 5.7 TH/MM3 (1.8-7.7); BASOPHIL % 0.4 % (0.0-2.0); EOSINOPHIL # 0.2 TH/MM3 (0-0.4); EOSINOPHIL % 2.1 % (0.0-4.0); HEMATOCRIT 31.8 % (39.0-51.0); HEMOGLOBIN 10.3 GM/DL (13.0-17.0); LYMPH % 21.4 % (9.0-44.0); LYMPHOCYTE # 1.9 TH/MM3 (1.0-4.8); MEAN CELL VOLUME 88.9 FL (80.0-100.0); MEAN CORPUSCULAR HEMOGLOBIN 28.8 PG (27.0-34.0); MEAN CORPUSCULAR HGB CONC 32.4 % (32.0-36.0); MEAN PLATELET VOLUME 8.1 FL (7.0-11.0); MONO % 11.6 % (0.0-8.0); NEUT % 64.5 % (16.0-70.0); PLATELET COUNT 249 TH/MM3 (150-450); RED BLOOD COUNT 3.58 MIL/MM3 (4.50-5.90); RED CELL DISTRIBUTION WIDTH 15.6 % (11.6-17.2); WHITE BLOOD COUNT 8.8 TH/MM3 (4.0-11.0)
[2017-09-18 13:26] VITALS: BP_SYST 113; BP_SYST 87; BP_SYST 96; BP_DIAS 51; BP_DIAS 54; BP_DIAS 57; RESP 16
[2017-09-18 13:28] VITALS: BP 99/56; PULSE 100; RESP 16; O2SAT 99
[2017-09-18 13:51] LABS: BICARBONATE 27.1 MEQ/L (21.0-32.0); CALCIUM 9.3 MG/DL (8.5-10.1); CREATININE 8.7 MG/DL (0.60-1.30)
[2017-09-18 14:54] VITALS: BP 110/66; PULSE 100; RESP 16; O2SAT 100
--- NOTE | 2017-09-19 17:36 | EKG ---
Date Performed: 09/18/2017 Time Performed: 13:06:19 PTAGE: 36 years EKG: Sinus rhythm LEFT VENTRICULAR HYPERTROPHY Compared to previous tracing, the ST-T changes are no longer present. A BNORMAL ECG PREVIOUS TRACING : 07/08/2017 16.58 DOCTOR: Ancelmo Daly Interpretating Date/Time 09/19/2017 17:35:23
== END 2017-09-18 14:56 | disposition home or self-care (01) ==
LOC: NEPD 12:21
DX: R55 Syncope and collapse (principal); R94.31 Abnormal electrocardiogram [ECG] [EKG]; I12.0 Hypertensive chronic kidney disease with stage 5 chronic kidney disease or end stage renal disease; E11.22 Type 2 diabetes mellitus with diabetic chronic kidney disease; N18.6 End stage renal disease; F17.200 Nicotine dependence, unspecified, uncomplicated; Z99.2 Dependence on renal dialysis
CPT/HCPCS: 80048; 85025; 93005; 99284; J7040